=== PATIENT | female | born 1940 | race Caucasian/White ===

== ENCOUNTER 2017-06-19 13:52 | Inpatient (IN) | payer OTHER ==
[~2017-06-19] VITALS: Ht 157.5 cm; Wt 59.0 kg
--- NOTE | ~2017-06-19 | EKG ---
[place] [address] [facility] [place] [address] ELECTROCARDIOGRAM REPORT Name: SINTIA BESSET Efrain Room #: 448-P ADM IN M.R.#: [id number] Admission: 06/19/17 Attend Phys: Kylah Adames Discharge: Date of : 44 Report #: [id number] THIS REPORT FOR: //name// [facility] ED Test Date: 2017-06-19 Test Time: 14:29:21 Pat Name: JESSE BESS Department: Room: 448 Gender: F Booster Operator: [id number] : 1940 Requested By: Kylie Davis Order Number: [id number] MD: Fortunato Arguello Measurements Intervals [place]ill Rate: 84 P: 4 WY: 183 QRS: -37 QRSD: 88 T: 59 QT: 372 QTc: 440 Interpretive Statements Sinus rhythm LAD, consider LAFB or inferior infarct Left ventricular hypertrophy Anterior infarct, old No previous ECG available for comparison Electronically Signed On 06-19-2017 22:39:13 CREATIVE ART THERAPIST by Fortunato Arguello [email or web address] <ELECTRONICALLY SIGNED> By: Fortunato Arguello MD 06/19/17 2239 28 1429 Fortunato Arguello MD /EVARISTO
[~2017-06-19 13:52] MED LIST: CIPROFLOXACIN500 M1 PO; LEVOTHYROXIN0.088 MG; ZOCOR20 MG PO
[2017-06-19 13:54] VITALS: BP 133/73
[2017-06-19] MEDS ORDERED: VITAMIN B-12500 MCG PO (14:14)
[2017-06-19] MEDS ORDERED: SYNTHROID100 MCG PO (14:15)
[2017-06-19] MEDS ORDERED: IRON325 PO (14:15)
[2017-06-19] MEDS ORDERED: FOLIC ACID1 MG PO (14:15)
[2017-06-19] MEDS ORDERED: SIMVASTATIN40 MG PO (14:16)
[2017-06-19] MEDS ORDERED: CARAFATE 1 GM TA1 G1 PO (14:16)
[2017-06-19] MEDS ORDERED: PROTONIX40 M2 PO (14:16)
[2017-06-19 14:40] LABS: HEMATOCRIT 24.8 % (37.0-47.0); HEMOGLOBIN 8.2 gm/dL (12.0-15.0); MCH 30.2 pg (26.0-34.0); MCV 91.5 fL (80.0-100.0); PLATELET COUNT 372 thou/uL (150-400); RBC 2.71 mil/uL (4.20-5.00); RDW 19.6 % (10.5-14.5); WBC 5.7 thou/uL (4.0-11.0)
[2017-06-19 14:44] VITALS: BP 133/73
[2017-06-19 14:46] LABS: MANUAL DIFF YES
[2017-06-19 14:48] LABS: CALCIUM 8.5 mg/dL (8.5-10.1); CREATININE 0.8 mg/dL (0.6-1.0); POTASSIUM 3.9 mmol/L (3.5-5.1)
[2017-06-19 14:53] LABS: APTT 27.2 Seconds (24.5-32.8)
[2017-06-19 15:16] LABS: METAMYELOCYTES 1 %; TOTAL CELL COUNT 100
[2017-06-19 15:17] LABS: ANISOCYTOSIS 2+; BURR CELLS FEW; POIKILOCYTOSIS SLIGHT; POLYCHROMASIA SLIGHT
[2017-06-19 15:18] LABS: OVALOCYTES OCCASIONAL
[2017-06-19 16:46] VITALS: BP 135/72
[2017-06-19 17:24] VITALS: BP 128/81
[2017-06-20 01:46] VITALS: BP 123/63
[2017-06-20 04:03] LABS: HEMATOCRIT 22.2 % (37.0-47.0); HEMOGLOBIN 7.2 gm/dL (12.0-15.0); MCHC 32.4 g/dL (28.0-37.0); MCV 92.6 fL (80.0-100.0); RBC 2.39 mil/uL (4.20-5.00); RDW 19.5 % (10.5-14.5); WBC 4.2 thou/uL (4.0-11.0)
[2017-06-20 04:49] VITALS: BP 154/91
[2017-06-20 08:40] VITALS: BP 156/94
[2017-06-20 11:33] VITALS: BP 130/73; BP 138/78
[2017-06-20 19:42] VITALS: BP 138/85
[2017-06-21 03:55] VITALS: BP 128/84
[2017-06-21 06:21] LABS: HEMATOCRIT 26.5 % (37.0-47.0); HEMOGLOBIN 8.8 gm/dL (12.0-15.0); MCH 29.9 pg (26.0-34.0); MCHC 33.1 g/dL (28.0-37.0); MCV 90.3 fL (80.0-100.0); RBC 2.94 mil/uL (4.20-5.00); RDW 19.7 % (10.5-14.5); WBC 3.8 thou/uL (4.0-11.0)
[2017-06-21 07:40] VITALS: BP 156/90
[2017-06-21 09:13] LABS: % SATURATION 36 % (20-39); IRON 62 ug/dL (50-170); TIBC 172 ug/dL (250-450); UIBC 110 ug/dL
[2017-06-21 17:16] VITALS: BP 137/73
[2017-06-21 19:23] VITALS: BP 127/66
[2017-06-22 04:54] VITALS: BP 121/68
[2017-06-22 05:28] LABS: HEMATOCRIT 25.1 % (37.0-47.0); HEMOGLOBIN 8.2 gm/dL (12.0-15.0); MCHC 32.8 g/dL (28.0-37.0); MCV 91.5 fL (80.0-100.0); RBC 2.74 mil/uL (4.20-5.00); RDW 19.7 % (10.5-14.5); WBC 4.2 thou/uL (4.0-11.0)
[2017-06-22 08:00] VITALS: BP 144/95
== END 2017-06-22 15:11 | DRG 393 ==
LOC: ER 13:52 → EROBS 16:14 → 4S 16:14
PROVIDERS: Emergency Medicine; Hospitalist; Internal Medicine Gastroenterology
PROC: 30233N1 Transfusion of Nonautologous Red Blood Cells into Peripheral Vein, Percutaneous Approach (ICD-10-PCS; principal; 2017-06-20)
DX: K62.7 Radiation proctitis (principal); E43 Unspecified severe protein-calorie malnutrition; D62 Acute posthemorrhagic anemia; I12.9 Hypertensive chronic kidney disease with stage 1 through stage 4 chronic kidney disease, or unspecified chronic kidney disease; N18.9 Chronic kidney disease, unspecified; E78.5 Hyperlipidemia, unspecified; Z96.649 Presence of unspecified artificial hip joint; E03.9 Hypothyroidism, unspecified; F03.90 Unspecified dementia, unspecified severity, without behavioral disturbance, psychotic disturbance, mood disturbance, and anxiety; D50.9 Iron deficiency anemia, unspecified; I71.4 Abdominal aortic aneurysm, without rupture; Z68.23 Body mass index [BMI] 23.0-23.9, adult; Z86.73 Personal history of transient ischemic attack (TIA), and cerebral infarction without residual deficits; Z88.1 Allergy status to other antibiotic agents; Z88.8 Allergy status to other drugs, medicaments and biological substances; Z93.3 Colostomy status; Z88.2 Allergy status to sulfonamides; Z85.89 Personal history of malignant neoplasm of other organs and systems; Z90.710 Acquired absence of both cervix and uterus; Z28.21 Immunization not carried out because of patient refusal
CPT/HCPCS: 10102

== ENCOUNTER → 2017-07-05 | Outpatient (CLI) | payer OTHER ==
[~2017-07-05] MED LIST changes: +ANALPRAM HC 2.530 GM RECTAL; +CARAFATE 1 GM TA1 G1 PO; +COLACE100 MG PO; +FOLIC ACID1 MG PO; +IRON325 PO; +MESALAMINE4 GM/60 M2 RECTAL; +MIRALAX17 GM PO; +PROTONIX40 M2 PO; +SIMVASTATIN40 MG PO; +SYNTHROID100 MCG PO; +TYLENOL325 MG PO; +VITAMIN B-12500 MCG PO
[2017-07-05 11:18] VITALS: BP 107/54; BP 97/63
== END ==
LOC: OPONC 01:11
DX: D62 Acute posthemorrhagic anemia (principal); C54.1 Malignant neoplasm of endometrium; I12.9 Hypertensive chronic kidney disease with stage 1 through stage 4 chronic kidney disease, or unspecified chronic kidney disease; I77.4 Celiac artery compression syndrome; K62.89 Other specified diseases of anus and rectum; R41.0 Disorientation, unspecified; Z93.3 Colostomy status
CPT/HCPCS: 91030

== ENCOUNTER 2017-08-07 12:28 | Inpatient (IN) | payer OTHER ==
[~2017-08-07] VITALS: Ht 157.5 cm; Wt 74.0 kg
[~2017-08-07 12:28] MED LIST changes: +COLOCORT100 MG/60 RECTAL
[2017-08-07 12:29] VITALS: BP 144/81
[2017-08-07 13:19] LABS: ABSOLUTE NEUTROPHILS 2.8 thou/uL (1.4-8.2); BASOPHILS 0.8 % (0.0-2.0); EOSINOPHILS 14.1 % (0.0-3.0); HEMATOCRIT 28.4 % (37.0-47.0); HEMOGLOBIN 9.4 gm/dL (12.0-15.0); LYMPHOCYTES 12.1 % (24.0-44.0); MCH 31.1 pg (26.0-34.0); MCHC 33.1 g/dL (28.0-37.0); MCV 93.8 fL (80.0-100.0); MONOCYTES 11.2 % (1.0-8.0); PLATELET COUNT 260 thou/uL (150-400); POLYS 61.8 % (36.0-66.0); RBC 3.03 mil/uL (4.20-5.00); RDW 16.7 % (10.5-14.5); WBC 4.5 thou/uL (4.0-11.0)
[2017-08-07 13:28] LABS: ANION GAP 6 mmol/L (7-16); BUN 14 mg/dL (7-18); CALCIUM 8.8 mg/dL (8.5-10.1); CHLORIDE 99 mmol/L (98-107); CO2 28 mmol/L (21-32); GLUCOSE 102 mg/dL (74-106); SODIUM 133 mmol/L (136-145)
[2017-08-07 13:34] LABS: ALBUMIN 2.8 g/dL (3.4-5.0); SGOT 40 U/L (15-37); SGPT 66 U/L (30-65); TOTAL BILIRUBIN < 0.1 mg/dL (<0.1-1.0); TOTAL PROTEIN 6.2 g/dL (6.4-8.2)
[2017-08-07 13:46] LABS: PROTIME 9.4 Seconds (9.3-11.4)
[2017-08-07 18:19] LABS: HEMATOCRIT 27.8 % (37.0-47.0); HEMOGLOBIN 9.3 gm/dL (12.0-15.0)
[2017-08-07 19:25] VITALS: BP 114/73
[2017-08-07 19:40] VITALS: BP 125/66
[2017-08-08 01:44] LABS: HEMOGLOBIN 7.8 gm/dL (12.0-15.0); MCH 31.3 pg (26.0-34.0); MCHC 33.7 g/dL (28.0-37.0); MCV 92.8 fL (80.0-100.0); RBC 2.48 mil/uL (4.20-5.00); RDW 16.5 % (10.5-14.5); WBC 3.8 thou/uL (4.0-11.0)
[2017-08-08 01:48] LABS: CALCIUM 8.2 mg/dL (8.5-10.1); CREATININE 0.9 mg/dL (0.6-1.0); MAGNESIUM 1.7 mg/dL (1.8-2.4); POTASSIUM 3.9 mmol/L (3.5-5.1)
[2017-08-08 04:30] VITALS: BP 105/61
[2017-08-08 07:18] VITALS: BP 128/58
[2017-08-08 09:45] LABS: HEMATOCRIT 26.7 % (37.0-47.0); HEMOGLOBIN 8.7 gm/dL (12.0-15.0)
[2017-08-08 12:55] VITALS: BP 98/46
[2017-08-08 17:00] VITALS: BP 93/41
[2017-08-08 19:33] VITALS: BP 80/51
[2017-08-09] VITALS: BP 98/52
[2017-08-09 02:09] LABS: HAV IgM AB (ANTI-HAV IgM) Negative (Negative); HEPATITIS B SURFACE AG Negative (Negative); HEPATITIS C VIRUS AB <0.1 (0.0-0.9)
[2017-08-09 04:15] VITALS: BP 125/61
[2017-08-09 06:57] LABS: HEMATOCRIT 21.8 % (37.0-47.0); HEMOGLOBIN 7.5 gm/dL (12.0-15.0); MCH 31.3 pg (26.0-34.0); MCHC 34.1 g/dL (28.0-37.0); MCV 91.7 fL (80.0-100.0); PLATELET COUNT 254 thou/uL (150-400); RBC 2.38 mil/uL (4.20-5.00); RDW 16.7 % (10.5-14.5); WBC 3.5 thou/uL (4.0-11.0)
[2017-08-09 07:07] LABS: CALCIUM 8.2 mg/dL (8.5-10.1); CREATININE 1.1 mg/dL (0.6-1.0); MAGNESIUM 1.7 mg/dL (1.8-2.4); POTASSIUM 4.1 mmol/L (3.5-5.1)
[2017-08-09 07:21] VITALS: BP 109/66
[2017-08-09 09:52] LABS: ANISOCYTOSIS 1+; METAMYELOCYTES 4 %; POLYCHROMASIA OCCASIONAL
[2017-08-09 11:13] VITALS: BP 110/61
[2017-08-09 11:32] LABS: HEMATOCRIT 23.7 % (37.0-47.0); HEMOGLOBIN 7.9 gm/dL (12.0-15.0)
[2017-08-09 15:17] VITALS: BP 101/55
[2017-08-09 19:15] VITALS: BP 106/51
[2017-08-10 04:20] VITALS: BP 97/55
[2017-08-10 07:28] VITALS: BP 99/49
[2017-08-10 10:26] VITALS: BP 99/49
[2017-08-10 11:38] LABS: HEMOGLOBIN 7.5 gm/dL (12.0-15.0); MCH 31.7 pg (26.0-34.0); MCV 93.4 fL (80.0-100.0); RBC 2.35 mil/uL (4.20-5.00); RDW 17.4 % (10.5-14.5); WBC 4.2 thou/uL (4.0-11.0)
[2017-08-10] MEDS ORDERED: FLAGYL500 MG PO ×2 (11:38)
[2017-08-10 11:47] LABS: CALCIUM 8.2 mg/dL (8.5-10.1); CREATININE 1.1 mg/dL (0.6-1.0); MAGNESIUM 1.8 mg/dL (1.8-2.4)
[2017-08-10] MEDS ORDERED: CIPRO500 MG PO ×2 (11:49)
== END 2017-08-10 13:13 | disposition home health service (06) | DRG 377 ==
LOC: ER 12:28 → 3W 16:43 → EROBS 16:43 → 3W 19:27 → ENTRNSPT 08-10 13:07 → EDTRNSPTSTS 08-10 13:10 → 3W 08-10 13:13
PROVIDERS: Internal Medicine; Nurse Practitioner; Nurse Practitioner Family; Physician Assistant
DX: K92.2 Gastrointestinal hemorrhage, unspecified (principal); E43 Unspecified severe protein-calorie malnutrition; I12.0 Hypertensive chronic kidney disease with stage 5 chronic kidney disease or end stage renal disease; D62 Acute posthemorrhagic anemia; R41.3 Other amnesia; N18.9 Chronic kidney disease, unspecified; E78.5 Hyperlipidemia, unspecified; K52.9 Noninfective gastroenteritis and colitis, unspecified; K62.7 Radiation proctitis; E03.9 Hypothyroidism, unspecified; F03.90 Unspecified dementia, unspecified severity, without behavioral disturbance, psychotic disturbance, mood disturbance, and anxiety; Z96.649 Presence of unspecified artificial hip joint; R74.0 Nonspecific elevation of levels of transaminase and lactic acid dehydrogenase [LDH]; Z86.73 Personal history of transient ischemic attack (TIA), and cerebral infarction without residual deficits; Z93.3 Colostomy status; Z85.42 Personal history of malignant neoplasm of other parts of uterus; Z88.2 Allergy status to sulfonamides; Z88.8 Allergy status to other drugs, medicaments and biological substances; Z79.899 Other long term (current) drug therapy; Z90.710 Acquired absence of both cervix and uterus; Z68.29 Body mass index [BMI] 29.0-29.9, adult
CPT/HCPCS: 10879

== ENCOUNTER 2017-08-11 12:22 | Inpatient (IN) | payer OTHER ==
[~2017-08-11] VITALS: Ht 157.5 cm; Wt 73.5 kg
--- NOTE | ~2017-08-11 | HC ---
[facility] [place] [address] CONSULTATION Name: JESSE BESS Room #: 404-P [facility] IN M.R.#: [id number] Admission: 08/11/17 Attend Phys: Franklyn Fuentes MD Discharge: Date of : 42 Report #: [id number] THIS REPORT FOR: //name// CC: Dandy Fuentes REASON FOR CONSULTATION: The patient is a 77-year-old woman with recurrent rectal bleeding. HISTORY OF PRESENT ILLNESS: This 77-year-old woman has a history of rectal bleeding. She has a history of endometrial cancer with previous hysterectomy and radiation therapy. The patient has a component of dementia and knows some details, but does not have many specifics. 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 She had a colostomy done in 05/2017. On 05/15/2017, she had cauterization of multiple telangiectasias in the rectum. She has had problems with rectal bleeding since her radiation therapy. She had seen by my associates in the past and she had a flexible sigmoidoscopy through her anus on 06/27/2017. Dr. Kelley reported multiple small nonbleeding diverticula at the upper end of her rectal stump. 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 She is treated symptomatically and it is noted she has been treated with both hydrocortisone enemas as well as Carafate enemas. The patient was recently admitted on 08/08/2017 with similar problems. She reported bright red rectal bleeding. She had a CT of the abdomen and pelvis done on 08/07/2017 which reveals her colostomy apparently at the level of distal transverse colon. The sigmoid and rectal vault remain in place. There was mild diffuse thickening of the distal colon thought to represent a colitis. The patient had no further bleeding, was discharged on 08/10/2017. The patient presented yesterday 1 day after discharge with further rectal bleeding. Prior to discharge, her hemoglobin was 7.5. Upon presentation yesterday was 8.6, it was 9 last evening and 7.8 this morning. I have spoken with the patient as well as the patient's nurse. There has been no rectal bleeding since last night. The patient reports there had been no further rectal bleeding. The patient clearly states that there has not been blood in her colostomy bag. She does not have any abdominal pain at this point in time. PAST MEDICAL HISTORY: The patient reports that she had a previous CVA, which resulted in memory problems. She has a history of chronic kidney disease, elevated lipids. She has abdominal aortic aneurysm. 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 She has had rectal bleeding as well as endometrial cancer. PAST SURGICAL HISTORY: Previous hysterectomy. She has had a hernia repair, [address] [place] [address] CONSULTATION Name: JESSE BESS Room #: 404-P [facility] IN ..#: [id number] Admission: 08/11/17 Attend Phys: Franklyn Fuentes MD Discharge: Date of : 42 Report #: [id number] total hip replacement and diverting colostomy. FAMILY HISTORY: No family history of colon cancer per the patient, however, reliability of her history is uncertain. SOCIAL HISTORY: Lives with her son, who manages her care including emptying her colostomy bag. She denies alcohol consumption or smoking. REVIEW OF SYSTEMS: Twelve-point review was completed with the patient. Positives include a previous CVA and memory issues. She reports rectal bleeding as well. She denies all other problems. Again, reliability of her history is uncertain. PHYSICAL EXAMINATION: GENERAL: The patient is a well-developed, well-nourished woman who is awake and alert, pleasant, in no acute distress. She probably answers questions; however, many times, she does not have the answer. She is not fully oriented to time. VITAL SIGNS: Blood pressure 130/70, pulse rate is 75. HEENT: Anicteric. Pupils equal and round. Oropharynx clear. NECK: Supple. CHEST: Clear. HEART: Regular rate and rhythm, normal S1 and S2. Soft murmur. ABDOMEN: Somewhat overweight. Normal bowel sounds, soft, nontender, without hepatosplenomegaly or masses, no bruits are heard. Colostomy bag is noted, not removed or taken down. RECTAL: Not done at this time. EXTREMITIES: Without cyanosis, clubbing, edema. NEUROLOGIC: She is not fully oriented. She has fluent speech. She moves all 4 extremities well. LABORATORY DATA: Reveal a white count of 3.9, hemoglobin 7.8, it was 8.6 last evening, platelet count of 310,000. Sodium 132, potassium 3.7, chloride 98, CO2 29, BUN 12, creatinine 1.0. Bilirubin, AST and ALT are all unremarkable. Albumin 2.7, lipase of 355. Urinalysis unremarkable. ASSESSMENT: 1. Radiation proctitis with recurrent rectal bleeding. 2. History of uterine cancer status post hysterectomy and radiation therapy. 3. Diverting colostomy, presumably for radiation proctitis. 4. Abnormal liver function tests on previous admission, normal at this time. 5. Fatty liver disease noted on previous ultrasound. 6. Memory loss. 7. Dementia. 8. History of chronic kidney disease with normal creatinine at this time. RECOMMENDATIONS: [facility] [address] [place] [address] CONSULTATION Name: JESSE BESS Room #: 404-P ADM IN .R.#: [id number] Admission: 08/11/17 Attend Phys: Franklyn Fuentes MD Discharge: Date of : 44 Report #: [id number] 1. Continue hydrocortisone enemas, which were started last evening. 2. Flexible sigmoidoscopy. Plan to do tomorrow. We will undertake intervention if needed. 3. We will resume diet. <ELECTRONICALLY SIGNED> By: Cliff Glover MD 08/12/17 1523 0928 1430 Cliff Glover MD /nt
--- NOTE | ~2017-08-11 | P ---
[facility] [place] [address] PROCEDURE REPORT Name: JESSE BESS Room #: 404-P [facility] IN M.R.#: [id number] Admission: 08/11/17 Attend Phys: Franklyn Fuentes MD Discharge: Date of : 42 Report #: [id number] THIS REPORT FOR: //name// CC: Dandy Fuentes BRIEF HISTORY: The patient is a 77-year-old woman with a history of previous surgery for, I believe, endometrial cancer with previous radiation therapy and subsequent diversion colostomy with distal sigmoid and rectum remaining in place. PREOPERATIVE DIAGNOSIS: Rectal bleeding with history of radiation proctitis. POSTOPERATIVE DIAGNOSES: 1. Extensive arteriovascular malformations, distal rectum. 2. 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 3. Sigmoid diverticulosis coli. MEDICATIONS: Deep sedation with propofol per anesthesia. SPECIMEN: Biopsies of rectum, rule out diversion colitis. ESTIMATED BLOOD LOSS: 5 mL. PROCEDURE: Flexible sigmoidoscopy with argon plasma coagulation of AVMs and biopsy. FINDINGS: Prior propofol sedation, procedure of flexible sigmoidoscopy discussed with the patient. She indicates she understands and desires to proceed. With the patient in left lateral decubitus position, digital examination was completed, which revealed no abnormalities. Subsequently, the LeanWagon video colonoscope was introduced in the rectum, advanced under direct vision. The scope was very carefully advanced into distal sigmoid colon to what appeared to be the blind end. Diverticula were seen in the distal segment of the sigmoid. The mucosa was intact. As the scope was withdrawn, the mucosa was inspected. The mucosa was normal appearing in the sigmoid and mid and upper rectum. However, it was quite friable and just touching with the scope caused some oozing of blood. Findings are thought to be consistent with diversion colitis and biopsies were obtained. Most notably in the distal rectum, there were extensive AVMs involving the entire 360 degree circumference of the distal rectum. Also, the mucosa was quite friable, which hampered our efforts to treat these areas. We irrigated, suctioned to remove as much blood as possible. However, some areas, there was persistent blood, which made visualization difficult. In spite of that, multiple areas of extensive AVMs were identified [address] [address] PROCEDURE REPORT Name: JESSE BESS Room #: 404-P [facility] IN [facility].#: [id number] Admission: 08/11/17 Attend Phys: Franklyn Fuentes MD Discharge: Date of : 42 Report #: [id number] and treated with a 10-Welsh argon plasma coagulation catheter. After all visible areas were treated, the scope was withdrawn. The patient tolerated the procedure well. DISPOSITION: The patient with the treatment as noted above. Due to her colitis, we will continue hydrocortisone enemas at this time. Continue to monitor hemoglobin. Unfortunately, bleeding will likely continue to be problem at least on a short term. Hopefully, treatment today will make some overall impact on reducing her rectal bleeding. She will likely need another treatment session and probably wait at least 4 weeks or more to allow the ulceration for today's treatment to heal and resolve. Ultimately, if it cannot be controlled, proctectomy may be an option if bleeding becomes a significant issue and does not resolve. <ELECTRONICALLY SIGNED> By: Cliff Glover MD 08/13/17 1631 1054 1214 Cliff Glover MD /nt
--- NOTE | ~2017-08-11 | S ---
[facility] [place] [address] SURGICAL PATH RPT PROCEDURE Name: MALINDA RIVERA Room #: 404-P DIS IN M.R.#: [id number] Admission: 08/11/17 Date of : 44 Discharge: 08/14/17 Report #: [id number] Path Case #: [id number] PATHOLOGY REPORT COLLECTION DATE: 08/13/2017 RECEIVED DATE: 08/13/2017 SUBMITTING PHYS: Dr. Franklyn Fuentes OTHER PHYS: Dr. Dandy Nazario SPECIMEN(S) RECEIVED: A.Bx of rectum * * * * * * * * * * * * FINAL DIAGNOSIS: Large intestine, rectum, endoscopic biopsy: - Nonspecific changes (please see comment). COMMENT: Examination shows subtle fibrosis within lamina propria along with edema as well as lymphocytes, plasma cells and rare eosinophils. The crypts show rare architectural distortion; however, show no evidence of active cryptitis, crypt abscess formation or atypia. Rare apoptotic bodies are identified within the crypts. History of radiation therapy is noted. The changes may represent reactive changes due to the same or a prior episode of active colitis which may be resolving. There is no dysplasia or malignancy present. Please correlate clinically. (IUV:pit; 08/14/2017) PATHOLOGIST: Sandra Blackburn M.D. REPORT ELECTRONICALLY SIGNED BY: Sandra Blackburn M.D. DATE/TIME: 08/14/2017 17:22 * * * * * * * * * * * * GROSS PATHOLOGY: Received in formalin labeled "Malinda Rivera, BX of rectum," are 4 segments of herrera soft tissue measuring 1.2 x 0.8 x 0.2 cm in aggregate dimensions and ranging from 0.2 to 0.3 cm in maximum dimension. The specimen is submitted entirely in cassette A1. (TSD; 08/13/2017) CLINICAL HISTORY: Pre-OP DX: Rectal bleeding, GI bleed, history of radiation therapy, history of colon diversion, Rule out diversion colitis [address] [address] SURGICAL PATH RPT PROCEDURE Name: MALINDA RIVERA Room #: 404-P [facility] IN M.R.#: [id number] Admission: 08/11/17 Date of : 44 Discharge: 08/14/17 Report #: [id number] Path Case #: [id number] INITIAL CPT CODE(S): A; 83113 Professional services performed by [facility] at [address], [place] [address] Technical services performed by [facility] at [address] [place] [address], [facility] [address] [address]. [facility] [address] [place] [address] PHONE: [phone] DIRECTOR: Rigoberto Watkins M.D. * * * END OF REPORT * * *
[~2017-08-11 12:22] MED LIST changes: +CIPRO500 MG PO; +FLAGYL500 MG PO
[2017-08-11 12:25] VITALS: BP 119/56
[2017-08-11 13:17] LABS: ABSOLUTE NEUTROPHILS 3.6 thou/uL (1.4-8.2); BASOPHILS 1.5 % (0.0-2.0); EOSINOPHILS 3.9 % (0.0-3.0); HEMATOCRIT 25.6 % (37.0-47.0); HEMOGLOBIN 8.6 gm/dL (12.0-15.0); LYMPHOCYTES 9.1 % (24.0-44.0); MCH 31.4 pg (26.0-34.0); MCHC 33.5 g/dL (28.0-37.0); MCV 93.6 fL (80.0-100.0); MONOCYTES 11.4 % (1.0-8.0); PLATELET COUNT 319 thou/uL (150-400); POLYS 74.1 % (36.0-66.0); RBC 2.73 mil/uL (4.20-5.00); RDW 17.5 % (10.5-14.5); WBC 4.9 thou/uL (4.0-11.0)
[2017-08-11 13:25] LABS: ANION GAP 5 mmol/L (7-16); BUN 12 mg/dL (7-18); CALCIUM 8.4 mg/dL (8.5-10.1); CHLORIDE 98 mmol/L (98-107); CO2 29 mmol/L (21-32); GLUCOSE 96 mg/dL (74-106); POTASSIUM 3.7 mmol/L (3.5-5.1); SODIUM 132 mmol/L (136-145)
[2017-08-11 13:31] LABS: URINE BILIRUBIN NEGATIVE (Negative); URINE BLOOD NEGATIVE (Negative); URINE CLARITY CLEAR; URINE COLOR YELLOW; URINE GLUCOSE-RANDOM* NEGATIVE (Negative); URINE KETONES NEGATIVE (Negative); URINE LEUKOCYTES NEGATIVE (Negative); URINE NITRITE NEGATIVE (Negative); URINE PROTEIN (DIPSTICK) NEGATIVE (Negative); URINE UROBILINOGEN 0.2 E.U./dl (0.2-1.0)
[2017-08-11 13:31] LABS: ALBUMIN 2.7 g/dL (3.4-5.0); DIRECT BILIRUBIN < 0.1 mg/dL (<0.1-0.3); LIPASE 335 U/L (73-393); SGOT 17 U/L (15-37); SGPT 29 U/L (30-65); TOTAL BILIRUBIN 0.1 mg/dL (<0.1-1.0); TOTAL PROTEIN 5.9 g/dL (6.4-8.2)
[2017-08-11 14:30] VITALS: BP 140/72
[2017-08-11 14:54] VITALS: BP 161/74
[2017-08-11 15:00] VITALS: BP 128/78
[2017-08-11 15:37] LABS: HEMATOCRIT 26.9 % (37.0-47.0); MCH 31.3 pg (26.0-34.0); MCHC 33.5 g/dL (28.0-37.0); MCV 93.6 fL (80.0-100.0); RBC 2.87 mil/uL (4.20-5.00); RDW 17.5 % (10.5-14.5); WBC 5.8 thou/uL (4.0-11.0)
[2017-08-11 20:25] VITALS: BP 129/68
[2017-08-12 00:46] VITALS: BP 110/68
[2017-08-12 03:45] VITALS: BP 130/70
[2017-08-12 05:47] LABS: HEMATOCRIT 23.4 % (37.0-47.0); HEMOGLOBIN 7.8 gm/dL (12.0-15.0); MCH 31.2 pg (26.0-34.0); MCHC 33.3 g/dL (28.0-37.0); MCV 93.9 fL (80.0-100.0); RBC 2.49 mil/uL (4.20-5.00); RDW 17.4 % (10.5-14.5); WBC 3.9 thou/uL (4.0-11.0)
[2017-08-12 08:00] VITALS: BP 125/73
[2017-08-12 16:00] VITALS: BP 119/70
[2017-08-12 20:00] VITALS: BP 138/72
[2017-08-13 04:00] VITALS: BP 125/65
[2017-08-13 06:24] LABS: HEMATOCRIT 21.8 % (37.0-47.0); HEMOGLOBIN 7.3 gm/dL (12.0-15.0); MCH 31.8 pg (26.0-34.0); MCHC 33.7 g/dL (28.0-37.0); MCV 94.3 fL (80.0-100.0); PLATELET COUNT 312 thou/uL (150-400); RBC 2.31 mil/uL (4.20-5.00); RDW 17.2 % (10.5-14.5)
[2017-08-13 06:41] LABS: CALCIUM 8.6 mg/dL (8.5-10.1); CREATININE 1.1 mg/dL (0.6-1.0); POTASSIUM 3.9 mmol/L (3.5-5.1)
[2017-08-13 08:07] LABS: ABSOLUTE NEUTROPHILS 2.4 thou/uL (1.4-8.2); ANISOCYTOSIS 1+; POLYCHROMASIA OCCASIONAL
[2017-08-13 12:00] VITALS: BP 142/74
[2017-08-13 16:00] VITALS: BP 136/82
[2017-08-13 19:50] VITALS: BP 96/54
[2017-08-14 04:50] VITALS: BP 103/64
[2017-08-14 06:43] LABS: HEMATOCRIT 21.8 % (37.0-47.0); HEMOGLOBIN 7.2 gm/dL (12.0-15.0); MCH 31.4 pg (26.0-34.0); MCHC 32.9 g/dL (28.0-37.0); MCV 95.7 fL (80.0-100.0); RBC 2.28 mil/uL (4.20-5.00); RDW 17.5 % (10.5-14.5); WBC 7.2 thou/uL (4.0-11.0)
[2017-08-14 09:44] VITALS: BP 108/61
[2017-08-14 12:29] VITALS: BP 108/61
== END 2017-08-14 14:45 | disposition home health service (06) | DRG 377 ==
LOC: ER 12:22 → 4N 13:38 → EROBS 13:38 → 4N 14:53
PROVIDERS: Emergency Medicine; Family Medicine; Internal Medicine; Specialist
PROC: 0DBP8ZX Excision of Rectum, Via Natural or Artificial Opening Endoscopic, Diagnostic (ICD-10-PCS; principal; 2017-08-11)
DX: K55.21 Angiodysplasia of colon with hemorrhage (principal); E43 Unspecified severe protein-calorie malnutrition; D62 Acute posthemorrhagic anemia; K62.7 Radiation proctitis; K57.31 Diverticulosis of large intestine without perforation or abscess with bleeding; K52.9 Noninfective gastroenteritis and colitis, unspecified; E78.5 Hyperlipidemia, unspecified; R41.3 Other amnesia; F03.90 Unspecified dementia, unspecified severity, without behavioral disturbance, psychotic disturbance, mood disturbance, and anxiety; N18.9 Chronic kidney disease, unspecified; I12.9 Hypertensive chronic kidney disease with stage 1 through stage 4 chronic kidney disease, or unspecified chronic kidney disease; K76.0 Fatty (change of) liver, not elsewhere classified; E03.9 Hypothyroidism, unspecified; Z96.649 Presence of unspecified artificial hip joint; Z79.899 Other long term (current) drug therapy; Z86.73 Personal history of transient ischemic attack (TIA), and cerebral infarction without residual deficits; Z88.2 Allergy status to sulfonamides; Z79.2 Long term (current) use of antibiotics; Z93.3 Colostomy status; Z88.8 Allergy status to other drugs, medicaments and biological substances; Z68.29 Body mass index [BMI] 29.0-29.9, adult; Z90.710 Acquired absence of both cervix and uterus
CPT/HCPCS: 10790; 50010; 62110; 62900

== ENCOUNTER 2017-08-17 14:04 | Inpatient (IN) | payer OTHER ==
[~2017-08-17] VITALS: Ht 157.5 cm; Wt 74.8 kg
--- NOTE | ~2017-08-17 | HC ---
[facility] [place] [address] CONSULTATION Name: JESSE BESS Room #: 431-P [facility] IN M.R.#: [id number] Admission: 08/17/17 Attend Phys: Carlton Hill MD Discharge: Date of : 42 Report #: [id number] THIS REPORT FOR: //name// CC: Carlton Adames MD DATE OF SERVICE: 08/18/2017 HISTORY OF PRESENT ILLNESS: The patient is a 77-year-old female who is a fair historian. She does have a history of dementia, who was admitted with not having a bowel movement for several days. She has a ostomy, colostomy and apparently was having increasing constipation. Her KUB showed multiple loops of small bowel that were dilated, could reflect an ileus or small-bowel obstruction. This was performed yesterday. A CT scan of the abdomen has been taken this morning, but has not been read as of yet. She denies any abdominal pain. There is a small amount of stool in her colostomy bag at this time. She denies any further bleeding from her rectum, which has been a problem recently. In fact, she has had several hospitalizations. Dr. Glover, my partner had done flexible sigmoidoscopy recently on her and the area was treated with APC cautery. She was noted to have a diversion colitis as well apparently. She has had a previous history of endometrial cancer with radiation therapy. The procedure was performed on 08/13/2017. The patient denies any nausea or vomiting currently. She is currently on clear liquids and would like to have something more substantial. No fevers or chills. PAST MEDICAL HISTORY: Colostomy, history of radiation and diversion colitis as per above, status post APC cautery recently, history of CVA, memory loss, anemia, previous history of endometrial cancer status post radiation, hypertension, hyperlipidemia, abdominal aortic aneurysm. MEDICATIONS ON ADMISSION: Flagyl, Cipro, hydrocortisone rectally, Synthroid, Carafate, Protonix. ALLERGIES: BACTRIM, SULFA, AND FENTANYL. REVIEW OF SYSTEMS: As per HPI. SOCIAL HISTORY: She denies any tobacco or alcohol use. FAMILY HISTORY: Negative for colon cancer. PHYSICAL EXAMINATION: VITAL SIGNS: Temperature is 97.9, pulse 94, blood pressure 113/66, respiratory rate is 18. [facility] [address] [place] [address] CONSULTATION Name: JESSE BESS Room #: 431-P [facility] IN M.R.#: [id number] Admission: 08/17/17 Attend Phys: Carlton Hill MD Discharge: Date of : 42 Report #: [id number] GENERAL: She is alert and oriented x 3 in no acute distress. HEENT: Sclerae nonicteric. Oropharynx clear. NECK: Supple. CARDIOVASCULAR: Regular rate and rhythm. CHEST: Clear to auscultation bilaterally. ABDOMEN: Soft. She is nontender, nondistended, normoactive bowel sounds. Colostomy is noted in place. There is a small amount of green to brown stool within the bag. No evidence of bleeding. EXTREMITIES: No cyanosis, clubbing or edema. LABORATORY DATA: Sodium 136, potassium 4.0, chloride 101, bicarbonate 28, BUN 14, creatinine 1.1. AST is 18, total bilirubin 0.1, alkaline phosphatase 79, total protein 6.3, albumin 2.7. WBC is 4.5, hemoglobin 7.6, was 8.4 yesterday. MCV 94.9, platelet count is 325. ASSESSMENT AND PLAN: 1. Recent constipation. KUB on admission showing dilated loops of small bowel suggesting a partial small-bowel obstruction. No history of nausea, vomiting. CT scan is pending at this time. If there is improvement on CT today, would likely recommend advancing diet. 2. History of rectal bleeding from radiation proctitis as well as diversion colitis. The patient had a recent flexible sigmoidoscopy with APC cautery. We will continue to monitor that closely. Continue cortisone suppository. Thank you for allowing me to participate in her care. <ELECTRONICALLY SIGNED> By: Magnus Newberry MD 08/20/17 0814 1307 1811 Magnus Newberry MD /nt
[2017-08-17 14:05] VITALS: BP 127/60
[2017-08-17 15:01] LABS: ABSOLUTE NEUTROPHILS 5.6 thou/uL (1.4-8.2); BASOPHILS 1.4 % (0.0-2.0); EOSINOPHILS 2.1 % (0.0-3.0); HEMATOCRIT 25.3 % (37.0-47.0); HEMOGLOBIN 8.4 gm/dL (12.0-15.0); LYMPHOCYTES 8.2 % (24.0-44.0); MCH 31.2 pg (26.0-34.0); MCHC 33.1 g/dL (28.0-37.0); MCV 94.4 fL (80.0-100.0); MONOCYTES 6.6 % (1.0-8.0); PLATELET COUNT 391 thou/uL (150-400); POLYS 81.7 % (36.0-66.0); RBC 2.68 mil/uL (4.20-5.00); RDW 16.8 % (10.5-14.5); WBC 6.9 thou/uL (4.0-11.0)
[2017-08-17 15:04] LABS: CALCIUM 8.6 mg/dL (8.5-10.1); CREATININE 1.1 mg/dL (0.6-1.0)
[2017-08-17 15:10] LABS: ALBUMIN 2.7 g/dL (3.4-5.0); TOTAL BILIRUBIN 0.1 mg/dL (<0.1-1.0); TOTAL PROTEIN 6.3 g/dL (6.4-8.2)
[2017-08-17 17:26] VITALS: BP 127/60
[2017-08-17 18:02] LABS: URINE BILIRUBIN NEGATIVE (Negative); URINE BLOOD 2+ (Negative); URINE CLARITY CLEAR; URINE COLOR YELLOW; URINE GLUCOSE-RANDOM* NEGATIVE (Negative); URINE KETONES NEGATIVE (Negative); URINE LEUKOCYTES-REFLEX NEGATIVE (Negative); URINE NITRITE-REFLEX NEGATIVE (Negative); URINE PROTEIN (DIPSTICK) TRACE (Negative); URINE SPECIFIC GRAVITY 1.015 (1.005-1.035); URINE UROBILINOGEN 0.2 E.U./dl (0.2-1.0)
[2017-08-17 18:10] LABS: BACTERIA-REFLEX 1-9 Few /HPF (None Seen); CASTS None Seen /LPF (None Seen); CRYSTALS None Seen /LPF (None Seen); MUCUS >6 Heavy strn/LPF (None Seen); SQUAMOUS 0-3 Few /LPF (0-3); URINE RBC 0-2 Rare /HPF (0-2); URINE WBC-REFLEX 0-5 Rare /HPF (0-5)
[2017-08-17 19:31] VITALS: BP 90/54
[2017-08-18 01:14] VITALS: BP 102/58
[2017-08-18 03:34] LABS: HEMATOCRIT 22.5 % (37.0-47.0); HEMOGLOBIN 7.6 gm/dL (12.0-15.0); MCH 31.9 pg (26.0-34.0); MCHC 33.7 g/dL (28.0-37.0); MCV 94.9 fL (80.0-100.0); RBC 2.38 mil/uL (4.20-5.00); WBC 4.5 thou/uL (4.0-11.0)
[2017-08-18 07:20] VITALS: BP 113/66
[2017-08-18 15:20] VITALS: BP 141/91
[2017-08-19 05:30] VITALS: BP 111/72
[2017-08-19 06:35] LABS: CALCIUM 8.6 mg/dL (8.5-10.1); POTASSIUM 4.5 mmol/L (3.5-5.1)
[2017-08-19 08:00] VITALS: BP 142/86
[2017-08-19 12:05] LABS: HEMATOCRIT 25.1 % (37.0-47.0); HEMOGLOBIN 8.3 gm/dL (12.0-15.0); MCH 31.4 pg (26.0-34.0); MCHC 33.1 g/dL (28.0-37.0); MCV 94.6 fL (80.0-100.0); RBC 2.65 mil/uL (4.20-5.00); RDW 17.1 % (10.5-14.5); WBC 3.9 thou/uL (4.0-11.0)
[2017-08-19 16:00] VITALS: BP 115/69
[2017-08-19 20:11] VITALS: BP 124/58
[2017-08-20 04:46] VITALS: BP 121/98
[2017-08-20 07:17] LABS: HEMATOCRIT 24.9 % (37.0-47.0); HEMOGLOBIN 8.1 gm/dL (12.0-15.0); MCH 31.1 pg (26.0-34.0); MCHC 32.5 g/dL (28.0-37.0); MCV 95.6 fL (80.0-100.0); RBC 2.6 mil/uL (4.20-5.00); WBC 3.2 thou/uL (4.0-11.0)
[2017-08-20 07:42] LABS: CALCIUM 8.8 mg/dL (8.5-10.1); CREATININE 1.1 mg/dL (0.6-1.0); POTASSIUM 3.9 mmol/L (3.5-5.1)
[2017-08-20 15:07] VITALS: BP 121/98
== END 2017-08-20 17:07 | disposition home health service (06) | DRG 388 ==
LOC: ER 14:04 → 4E 15:51 → EROBS 15:51 → 4E 18:13
PROVIDERS: Hospitalist; Nurse Practitioner Family
DX: K56.600 Partial intestinal obstruction, unspecified as to cause (principal); E43 Unspecified severe protein-calorie malnutrition; K62.5 Hemorrhage of anus and rectum; I12.0 Hypertensive chronic kidney disease with stage 5 chronic kidney disease or end stage renal disease; D62 Acute posthemorrhagic anemia; K62.7 Radiation proctitis; K80.20 Calculus of gallbladder without cholecystitis without obstruction; I71.4 Abdominal aortic aneurysm, without rupture; K21.9 Gastro-esophageal reflux disease without esophagitis; Z96.649 Presence of unspecified artificial hip joint; E03.9 Hypothyroidism, unspecified; K59.00 Constipation, unspecified; F03.90 Unspecified dementia, unspecified severity, without behavioral disturbance, psychotic disturbance, mood disturbance, and anxiety; E78.5 Hyperlipidemia, unspecified; Z86.73 Personal history of transient ischemic attack (TIA), and cerebral infarction without residual deficits; Z93.3 Colostomy status; Z85.42 Personal history of malignant neoplasm of other parts of uterus; Z88.2 Allergy status to sulfonamides; Z88.8 Allergy status to other drugs, medicaments and biological substances; Z79.899 Other long term (current) drug therapy; Z90.710 Acquired absence of both cervix and uterus
CPT/HCPCS: 10084

== ENCOUNTER 2017-08-28 11:24 | Emergency (ER) | payer OTHER ==
[~2017-08-28] VITALS: Ht 157.5 cm; Wt 56.7 kg
[2017-08-28 11:57] LABS: ABSOLUTE NEUTROPHILS 2.8 thou/uL (1.4-8.2); BASOPHILS 0.3 % (0.0-2.0); EOSINOPHILS 7.1 % (0.0-3.0); HEMATOCRIT 25.8 % (37.0-47.0); HEMOGLOBIN 8.6 gm/dL (12.0-15.0); LYMPHOCYTES 14.2 % (24.0-44.0); MCH 31.2 pg (26.0-34.0); MCHC 33.2 g/dL (28.0-37.0); MCV 94.2 fL (80.0-100.0); MONOCYTES 8.9 % (1.0-8.0); PLATELET COUNT 326 thou/uL (150-400); POLYS 69.5 % (36.0-66.0); RBC 2.74 mil/uL (4.20-5.00); RDW 16.8 % (10.5-14.5)
[2017-08-28 12:03] LABS: CALCIUM 9.1 mg/dL (8.5-10.1); POTASSIUM 4.2 mmol/L (3.5-5.1)
[2017-08-28 12:09] LABS: TOTAL BILIRUBIN 0.2 mg/dL (<0.1-1.0); TOTAL PROTEIN 6.3 g/dL (6.4-8.2)
[2017-08-28 12:56] VITALS: BP 115/71
== END 2017-08-28 13:12 | disposition home or self-care (01) ==
LOC: ER 11:24
PROVIDERS: Physician Assistant
DX: K62.5 Hemorrhage of anus and rectum (principal); D64.9 Anemia, unspecified; K62.7 Radiation proctitis; I12.9 Hypertensive chronic kidney disease with stage 1 through stage 4 chronic kidney disease, or unspecified chronic kidney disease; N18.9 Chronic kidney disease, unspecified; E78.5 Hyperlipidemia, unspecified; I71.4 Abdominal aortic aneurysm, without rupture; Z86.73 Personal history of transient ischemic attack (TIA), and cerebral infarction without residual deficits; Z88.2 Allergy status to sulfonamides; Z88.8 Allergy status to other drugs, medicaments and biological substances

== ENCOUNTER 2017-09-15 01:39 | Inpatient (IN) | payer OTHER ==
[~2017-09-15] VITALS: Ht 157.5 cm; Wt 71.5 kg
--- NOTE | ~2017-09-15 | P ---
[facility] [place] [place] [address] PROCEDURE REPORT Name: JESSE BESS Room #: 207-P [facility] IN .R.#: [id number] Admission: 09/15/17 Attend Phys: Franklyn Fuentes MD Discharge: 09/18/17 Date of : 42 Report #: [id number] THIS REPORT FOR: //name// CC: Carlton Fuentes DATE OF SERVICE: 09/15/2017 PROCEDURE PERFORMED: Flexible sigmoidoscopy. HISTORY OF PRESENT ILLNESS: The patient is a 77-year-old female with a history of colostomy. It is unclear if this was done for diverticular disease or history of colon cancer, however, she has had this for some time. She has a known history of recurrent lower GI bleed from her remaining sigmoid and rectum. She also has a known history of radiation proctitis. She had radiation therapy for endometrial cancer. She has a history of diversion colitis as well as diverticulosis within the remaining Annmarie pouch segment. This has been treated with suppositories and steroid enemas without much benefit. Dr. Glover performed APC cautery on radiation changes 1 month ago, which appeared to be helpful. The patient had recurrent bleeding at this time as well as drop in hemoglobin. She has now received 1 unit of packed cells. Plan is for repeat flexible sigmoidoscopy today. DESCRIPTION OF PROCEDURE: The risks and benefits of the procedure were explained to the patient, those risks including but not limited to bleeding, perforation, the risk of sedation. She understood these risks and gave informed consent. The procedure was performed with conscious sedation using Versed and morphine. Next, a digital rectal exam was initially performed, which showed some narrowing in the anal canal, but otherwise normal. Next, using a standard Fujinon colonoscope, the scope was placed in the patient's anus and advanced under direct vision into the rectosigmoid colon at which point, the patient was having some discomfort. There were multiple clots within this area. At this point, I removed the clots that were visualized and removed the scope and then replaced this with a Fujinon upper endoscope that was smaller and thinner in diameter. I was able to advance the scope into the area of the Annmarie's pouch closure. Multiple diverticula were noted in this area as well as some clots. Multiple washings and aspirations were performed. There was no evidence of bleeding from diverticula. The scope was then slowly withdrawn and there were significant changes of inflammation noted in the rectum as well as clots and bright red blood. There was a significant radiation proctitis changes with some ulcerations. This is likely source of recent bleed. At this point, we are attempting to start APC cautery; however, despite giving the patient Versed and morphine, she was having discomfort and wanted us to stop the procedure. There [address] [address] PROCEDURE REPORT Name: MARIA ALEJANDRAJESSE M Room #: 207-P [facility] IN M.R.#: [id number] Admission: 09/15/17 Attend Phys: Franklyn Fuentes MD Discharge: 09/18/17 Date of : 42 Report #: [id number] was no significant active bleeding at this time; therefore, it was determined to go ahead and terminate the procedure. The patient tolerated the procedure well other than some discomfort. IMPRESSION: 1. Significant radiation proctitis with clot, likely source of recent recurrent bleed. 2. Diverticulosis in the remaining Annmarie's pouch, no evidence of bleeding. RECOMMENDATIONS: Overall, very difficult case. I discussed the findings with the patient's son today. It appears that APC cautery has been helpful. She has only had this treated once in the past. I would recommend repeating treatment with anesthesia using propofol for deeper sedation, probably on Sunday morning. In the meantime, continue to monitor hemoglobin closely, may need to proceed sooner. I also explained to the patient and her son that we may need to consider surgical options removing her rectum and remaining Annmarie's pouch; however, this may be very difficult as she has a large amount of scarring in this area from previous radiation. This was noted on CT. Of note, there was no mass lesions noted in the rectum or within the anal canal. If the patient has continued recurrent episodes, surgery would be of benefit, but again this has an increased risk due to her previous radiation changes. Thank you for allowing me to participate in her care. <ELECTRONICALLY SIGNED> By: Magnus Newberry MD 09/19/17 0821 1403 2153 Magnus Newberry MD /nt
--- NOTE | ~2017-09-15 | HC ---
[facility] [place] [address] CONSULTATION Name: JESSE BESS Room #: 207-P [facility] IN .R.#: [id number] Admission: 09/15/17 Attend Phys: Franklyn Fuentes MD Discharge: 09/18/17 Date of : 42 Report #: [id number] THIS REPORT FOR: //name// CC: Carlton Fuentes DATE OF SERVICE: 09/15/2017 HISTORY OF PRESENT ILLNESS: The patient is a 77-year-old female with a history of recurrent hematochezia. She has a colostomy, but has had no bleeding on her ostomy, but recurrent GI bleeds from her Annmarie's pouch. She underwent a flexible sigmoidoscopy by my partner, Dr. 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 These areas were treated with APC cautery at that time. It appears this was helpful and she had no further bleeding until just recently. She has had a previous history of endometrial cancer with radiation therapy. She denies any significant abdominal pain. The patient is a fair historian. She does have a history of dementia. The patient apparently was passing bright red blood with clots and her hemoglobin was noted to be 6.8. She underwent a transfusion of 1 unit of packed cells and her repeat hemoglobin this morning at 09:50 was 8.3. No fevers or chills. The stool in the colostomy has been brown and no evidence of bleeding. She has also had a recent hospitalization for partial small bowel obstruction. 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 ALLERGIES: BACTRIM, FENTANYL AND SULFA. REVIEW OF SYSTEMS: As per HPI. SOCIAL HISTORY: She denies any tobacco or alcohol use. FAMILY HISTORY: Negative for colon cancer. MEDICATIONS: On admission, Synthroid, Carafate, Protonix. PHYSICAL EXAMINATION: VITAL SIGNS: Temperature is 98.1, pulse 70, blood pressure 136/77, respiratory rate is 18. GENERAL: She is oriented to place and person. She is somewhat forgetful. She [facility] [address] [place] [address] CONSULTATION Name: JESSE BESS Room #: 207-P [facility] IN [facility]#: [id number] Admission: 09/15/17 Attend Phys: Franklyn Fuentes MD Discharge: 09/18/17 Date of : 42 Report #: [id number] is in no acute distress. HEENT: Sclerae nonicteric. Oropharynx clear. NECK: Supple, without lymphadenopathy. CARDIOVASCULAR: Regular rate and rhythm. CHEST: Clear to auscultation bilaterally. ABDOMEN: Soft. She is nontender, nondistended, normoactive bowel sounds. EXTREMITIES: No cyanosis, clubbing or edema. LABORATORY DATA: Sodium 138, potassium 4.4, chloride 104, bicarbonate 27, BUN 20, creatinine is 1.2, AST 20, total bilirubin less than 0.1, alkaline phosphatase 58, ALT is 16, total protein 6.3, albumin 3.1. INR 1.0. WBC is 4.1, hemoglobin 8.3 after 1 unit of packed cells, platelet count 287. IMAGING: CT scan of the abdomen and pelvis on 09/15/2017 shows previous partial colectomy with colostomy of the descending colon in the left lower quadrant, sigmoid colon in the rectum are present without leakage of anastomosis proximally, circumferential wall thickening of the rectum, there is fluid and debris within the rectum, this could represent post-therapeutic changes, although neoplasm of the rectum may also be present. There is marked thickening of the anus and perineal structures which could represent post-therapeutic change versus neoplasm, circumferential wall thickening of the urinary bladder. No pelvic adenopathy is noted. No evidence of a small bowel obstruction. 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 ASSESSMENT AND PLAN: 1. Recurrent hematochezia from remaining sigmoid rectum Annmarie's pouch. 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 She is having no bleeding in her colostomy. She has undergone one flexible sigmoidoscopy with APC cautery by Dr. Glover last month, which appears to be helpful as she had no further bleeding for approximately 1 month. Because of recurrent bleeding and drop in her hemoglobin, I would recommend proceeding with a flexible sigmoidoscopy today for further evaluation. We will make further recommendations at that time. In the meantime, we will need to continue to monitor her hemoglobin closely. 2. Cholelithiasis without cholecystitis changes. Thank you for allowing me to participate in her care. <ELECTRONICALLY SIGNED> By: Magnus Newberry MD 09/19/17 0821 [id number] Magnus Newberry MD /nt
[2017-09-15 02:11] LABS: WBC 4.1 thou/uL (4.0-11.0)
[2017-09-15 02:12] LABS: HEMATOCRIT 20.4 % (37.0-47.0); HEMOGLOBIN 6.8 gm/dL (12.0-15.0); MCH 31.8 pg (26.0-34.0); MCHC 33.4 g/dL (28.0-37.0); MCV 95.3 fL (80.0-100.0); RBC 2.15 mil/uL (4.20-5.00); RDW 16.5 % (10.5-14.5)
[2017-09-15 02:23] LABS: ANION GAP 7 mmol/L (7-16); BUN 20 mg/dL (7-18); CALCIUM 8.6 mg/dL (8.5-10.1); CHLORIDE 104 mmol/L (98-107); CO2 27 mmol/L (21-32); CREATININE 1.2 mg/dL (0.6-1.0); GLUCOSE 116 mg/dL (74-106); POTASSIUM 4.4 mmol/L (3.5-5.1); SODIUM 138 mmol/L (136-145)
[2017-09-15 02:25] LABS: APTT 20.8 Seconds (24.5-32.8); PROTIME 9.3 Seconds (9.3-11.4)
[2017-09-15 02:29] LABS: ALBUMIN 3.1 g/dL (3.4-5.0); SGOT 20 U/L (15-37); SGPT 16 U/L (30-65); TOTAL BILIRUBIN < 0.1 mg/dL (<0.1-1.0); TOTAL PROTEIN 6.3 g/dL (6.4-8.2)
[2017-09-15 03:47] VITALS: BP 126/66
[2017-09-15 04:37] VITALS: BP 139/78; BP 150/80
[2017-09-15 08:00] VITALS: BP 123/61
[2017-09-15 11:46] VITALS: BP 136/77
[2017-09-15 15:44] VITALS: BP 109/67
[2017-09-15 19:50] VITALS: BP 123/71
[2017-09-16 05:05] VITALS: BP 109/69
[2017-09-16 05:34] LABS: HEMATOCRIT 23.7 % (37.0-47.0); HEMOGLOBIN 7.7 gm/dL (12.0-15.0); MCH 30.8 pg (26.0-34.0); MCHC 32.5 g/dL (28.0-37.0); MCV 94.8 fL (80.0-100.0); RBC 2.5 mil/uL (4.20-5.00); RDW 18.8 % (10.5-14.5)
[2017-09-16 08:15] VITALS: BP 123/60
[2017-09-16 17:31] VITALS: BP 143/119
[2017-09-16 20:02] VITALS: BP 161/74
[2017-09-17 08:00] VITALS: BP 105/88
[2017-09-17 12:06] LABS: CALCIUM 8.6 mg/dL (8.5-10.1); MAGNESIUM 2.3 mg/dL (1.8-2.4); POTASSIUM 4.8 mmol/L (3.5-5.1)
[2017-09-17 19:56] VITALS: BP 102/56
[2017-09-18] VITALS (7 sets, daily range): BP systolic 99–147; BP diastolic 57–93
[2017-09-18 12:58] LABS: ALBUMIN 2.9 g/dL (3.4-5.0); CALCIUM 8.7 mg/dL (8.5-10.1); POTASSIUM 4.1 mmol/L (3.5-5.1); TOTAL BILIRUBIN 0.2 mg/dL (<0.1-1.0); TOTAL PROTEIN 6.3 g/dL (6.4-8.2)
[2017-09-18 13:41] LABS: ABSOLUTE NEUTROPHILS 2.7 thou/uL (1.4-8.2); BASOPHILS 0.7 % (0.0-2.0); EOSINOPHILS 4.6 % (0.0-3.0); HEMATOCRIT 26.7 % (37.0-47.0); HEMOGLOBIN 8.4 gm/dL (12.0-15.0); LYMPHOCYTES 7.9 % (24.0-44.0); MCH 30.4 pg (26.0-34.0); MCHC 31.6 g/dL (28.0-37.0); MCV 96.3 fL (80.0-100.0); MONOCYTES 8.2 % (1.0-8.0); PLATELET COUNT 280 thou/uL (150-400); POLYS 78.6 % (36.0-66.0); RBC 2.77 mil/uL (4.20-5.00); RDW 18.5 % (10.5-14.5); WBC 3.5 thou/uL (4.0-11.0)
[2017-09-18 14:03] LABS: ANISOCYTOSIS 1+; MACROCYTES 1+; POLYCHROMASIA 1+
== END 2017-09-18 19:00 | disposition home or self-care (01) | DRG 378 ==
LOC: ER → EROBS 02:51 → 2N 02:51
PROVIDERS: Emergency Medicine; Hospitalist; Internal Medicine; Specialist
PROC: 0DJD8ZZ Inspection of Lower Intestinal Tract, Via Natural or Artificial Opening Endoscopic (ICD-10-PCS; principal; 2017-09-15)
PROC: 0W3P8ZZ Control Bleeding in Gastrointestinal Tract, Via Natural or Artificial Opening Endoscopic (ICD-10-PCS; 2017-09-17)
DX: K92.2 Gastrointestinal hemorrhage, unspecified (principal); D62 Acute posthemorrhagic anemia; K63.3 Ulcer of intestine; K62.7 Radiation proctitis; F03.90 Unspecified dementia, unspecified severity, without behavioral disturbance, psychotic disturbance, mood disturbance, and anxiety; E03.9 Hypothyroidism, unspecified; K80.20 Calculus of gallbladder without cholecystitis without obstruction; K64.8 Other hemorrhoids; K57.30 Diverticulosis of large intestine without perforation or abscess without bleeding; W88.1XXA Exposure to radioactive isotopes, initial encounter; Y93.89 Activity, other specified; Y92.89 Other specified places as the place of occurrence of the external cause; Y99.8 Other external cause status; Z85.038 Personal history of other malignant neoplasm of large intestine; Z93.3 Colostomy status; Z86.73 Personal history of transient ischemic attack (TIA), and cerebral infarction without residual deficits; Z92.3 Personal history of irradiation; Z90.710 Acquired absence of both cervix and uterus; Z85.42 Personal history of malignant neoplasm of other parts of uterus; Z79.899 Other long term (current) drug therapy; Z88.1 Allergy status to other antibiotic agents; Z88.2 Allergy status to sulfonamides; Z88.8 Allergy status to other drugs, medicaments and biological substances
CPT/HCPCS: 10081; 62110; 70005

== ENCOUNTER 2017-09-24 16:29 | Emergency (ER) | payer OTHER ==
[~2017-09-24] VITALS: Ht 157.5 cm; Wt 56.7 kg
[2017-09-24 17:20] LABS: HEMOGLOBIN 8.3 gm/dL (12.0-15.0); MCHC 33.1 g/dL (28.0-37.0); RDW 17.7 % (10.5-14.5)
[2017-09-24 17:21] LABS: HEMATOCRIT 24.9 % (37.0-47.0); MCH 30.9 pg (26.0-34.0); MCV 93.3 fL (80.0-100.0); PLATELET COUNT 329 thou/uL (150-400); RBC 2.67 mil/uL (4.20-5.00); WBC 10.2 thou/uL (4.0-11.0)
[2017-09-24 17:27] LABS: ANION GAP 7 mmol/L (7-16); BUN 19 mg/dL (7-18); CALCIUM 8.8 mg/dL (8.5-10.1); CHLORIDE 102 mmol/L (98-107); CO2 27 mmol/L (21-32); GLUCOSE 100 mg/dL (74-106); POTASSIUM 4.1 mmol/L (3.5-5.1); SODIUM 136 mmol/L (136-145)
[2017-09-24 17:33] LABS: ALBUMIN 2.9 g/dL (3.4-5.0); SGOT 22 U/L (15-37); SGPT 18 U/L (30-65); TOTAL BILIRUBIN < 0.1 mg/dL (<0.1-1.0); TOTAL PROTEIN 6.3 g/dL (6.4-8.2)
[2017-09-24 17:52] LABS: METAMYELOCYTES 1 %
[2017-09-24 17:53] LABS: ANISOCYTOSIS 1+
[2017-09-24 18:41] VITALS: BP 126/90
== END 2017-09-24 19:14 | disposition home or self-care (01) ==
LOC: ER 16:29
PROVIDERS: Physician Assistant
DX: K92.2 Gastrointestinal hemorrhage, unspecified (principal); D53.9 Nutritional anemia, unspecified; Z85.038 Personal history of other malignant neoplasm of large intestine; Z88.2 Allergy status to sulfonamides; Z88.8 Allergy status to other drugs, medicaments and biological substances

== ENCOUNTER 2017-10-02 14:15 | Emergency (ER) | payer OTHER ==
[~2017-10-02] VITALS: Ht 160 cm; Wt 77.1 kg
[2017-10-02 15:15] LABS: HEMATOCRIT 23.6 % (37.0-47.0); HEMOGLOBIN 7.7 gm/dL (12.0-15.0); MCH 30.4 pg (26.0-34.0); MCHC 32.7 g/dL (28.0-37.0); MCV 92.9 fL (80.0-100.0); RBC 2.54 mil/uL (4.20-5.00); RDW 17.5 % (10.5-14.5); WBC 3.7 thou/uL (4.0-11.0)
[2017-10-02 15:22] LABS: CALCIUM 8.8 mg/dL (8.5-10.1); POTASSIUM 4.4 mmol/L (3.5-5.1)
[2017-10-02 15:25] LABS: APTT 24.4 Seconds (24.5-32.8); PROTIME 9.3 Seconds (9.3-11.4)
[2017-10-02 15:30] LABS: ALBUMIN 2.9 g/dL (3.4-5.0); TOTAL BILIRUBIN 0.1 mg/dL (<0.1-1.0); TOTAL PROTEIN 6.2 g/dL (6.4-8.2)
[2017-10-02 20:51] VITALS: BP 102/54
== END 2017-10-02 20:51 | disposition short-term general hospital (02) ==
LOC: ER 14:15
PROVIDERS: Emergency Medicine
DX: K62.5 Hemorrhage of anus and rectum (principal); D64.9 Anemia, unspecified; Z85.038 Personal history of other malignant neoplasm of large intestine; Z88.1 Allergy status to other antibiotic agents; Z88.6 Allergy status to analgesic agent

== ENCOUNTER 2018-04-19 22:51 | Inpatient (IN) | payer OTHER ==
[~2018-04-19] VITALS: Ht 5.1 cm; Wt 81.6 kg
--- NOTE | ~2018-04-19 | O ---
[facility] [place] [address] OPERATIVE REPORT Name: JESSE BESS Room #: 454-P ADM IN M.R.#: [id number] Admission: 04/20/18 Attend Phys: Carlton Hill MD Discharge: Date of : 42 Report #: [id number] THIS REPORT FOR: //name// CC: Edwige Hill [facility] physician/PCP DATE OF SERVICE: 04/21/2018 PREOPERATIVE DIAGNOSIS: Left hip femoral neck fracture, displaced. POSTOPERATIVE DIAGNOSIS: Left hip femoral neck fracture, displaced. PROCEDURE PERFORMED: Left hip hemiarthroplasty, unipolar. SURGEON: Corwin Swartz MD INTERPRETER: Leonila Live PA-C. ANESTHESIA: General. FLUIDS: 750 mL crystalloid. ESTIMATED BLOOD LOSS: Approximately 50 mL. IMPLANTS UTILIZED: Dunlap and Nephew Synergy porous femoral component, size 9 with +0 taper sleeve assembly and 46 mm unipolar head, pressfit. DESCRIPTION OF PROCEDURE: After proper identification of the patient and operative site in preoperative holding area, the operative site was signed by myself. Prophylactic antibiotics given. The patient's son had signed the consent and was the patient's durable power of employment attorney for medical decision making: The patient was brought back to the operative suite after being cleared by the Medicine Service. After induction of satisfactory general anesthesia, she was carefully positioned in the right lateral position. The pelvis was stabilized. Left hip was sterilely prepped and draped in the usual manner. Posterior approach to the hip was planned. Final skin draping, after sterile prep and drape, with Ioban was utilized. Skin was incised sharply. Full thickness skin flaps were developed. Gluteal fascia was identified and split longitudinally. Charnley retractor was carefully placed to retract the soft tissues. Piriformis tendon was identified, tagged and released. T-shaped capsulotomy was performed and the fracture hematoma was evacuated, femoral head was removed with a corkscrew and measured 46 mm on the back table. Articular surface of the acetabulum was otherwise intact. No obvious evidence of an acetabular fracture was noted. Approximately 1 cm above the lesser trochanter, an osteotomy of the femoral head was performed. Next, the canal was opened by [facility] [address] [place] [address] OPERATIVE REPORT Name: JESSE BESS Room #: 454-P [facility] IN M.R.#: [id number] Admission: 04/20/18 Attend Phys: Carlton Hill MD Discharge: Date of : 42 Report #: [id number] hand reaming and was sequentially reamed and then broached up to a size 9 stem. Due to the patient's excellent fit and cortices noted on the radiographs, a press fit stem was utilized. Trial components matched the implanted components mentioned above and equal leg lengths are noted on the operative table with the +0 neck. Excellent stability was afforded and the trial implants were removed. The wound and canal was thoroughly irrigated with antibiotic irrigant. This was dried. A press-fit size 9 stem was carefully impacted into position and had excellent stability. Trial components were again utilized and then the final components inserted with a 46 mm unipolar head with +0 sleeve, hip was stable throughout a full range of motion, equal leg lengths were noted. Capsule was repaired with #2 FiberWire. Piriformis was repaired with #2 FiberWire. One gram of vancomycin powder had been utilized, half of it deep, half of it more superficial. 0 Vicryl was used to close the gluteal fascia, followed by 2-0 Vicryl and a running Monocryl stitch. A Dunlap and Nephew CURTIS dressing was applied. At time of dictation, the patient was still in the operative suite with anticipated discharge to recovery room in stable condition. Qualified speech language assistant utilized throughout the entire procedure to aid in patient limb positioning, visualization and retraction of soft tissues, instrument passage, closure and dressing application. By: 1021 1057 Corwin Swartz MD /nt
--- NOTE | ~2018-04-19 | EKG ---
[address] [email or web address] [address] ELECTROCARDIOGRAM REPORT Name: JESSE BESS Room #: 454-P [facility] IN M.R.#: [id number] Admission: 04/20/18 Attend Phys: Kylah Adames Discharge: 04/23/18 Date of : 42 Report #: [id number] THIS REPORT FOR: //name// [facility] ED Test Date: 2018-04-20 Test Time: 00:12:35 Pat Name: JESSE BESS Department: Room: [facility] Gender: F Hyperbaric Technician: Kathy JOLLEY : 1940 Requested By: Storm Wade Order Number: [id number] MD: Fortunato Arguello Measurements Intervals [place] Rate: 70 P: -19 FL: 213 QRS: -40 QRSD: 92 T: 86 QT: 391 QTc: 422 Interpretive Statements Sinus rhythm Borderline prolonged FL interval Left anterior fascicular block LVH with secondary repolarization abnormality Electronically Signed On 04-26-2018 14:17:15 CDT by Fortunato Arguello [email or web address] <ELECTRONICALLY SIGNED> By: Fortunato Arguello MD 04/26/18 1417 001 0012 Fortunato Arguello MD /EVARISTO
--- NOTE | ~2018-04-19 | HC ---
[facility] [place] [address] CONSULTATION Name: JSESE BESS Room #: 454-P ADM IN M.R.#: [id number] Admission: 04/20/18 Attend Phys: Carlton Hill MD Discharge: Date of : 42 Report #: [id number] THIS REPORT FOR: //name// CC: Edwige Hill [facility] physician/PCP DATE OF SERVICE: 04/20/2018 HISTORY OF PRESENT ILLNESS: The patient is a pleasantly confused 77-year-old female who was admitted through the Emergency Department at [facility] yesterday status post unwitnessed fall. The patient reports that she tripped and fell and landed on her left leg. The patient reports pain in the leg now with any attempted range of motion. Pain is under good control at rest. The patient reports that she lives with her son and normally ambulates without a walker. ALLERGIES: FENTANYL, SULFA, SULFAMETHOXAZOLE, TRIMETHOPRIM. MEDICATIONS: Please see MAR for current medications, but reported home medications include levothyroxine, simvastatin. PAST MEDICAL HISTORY: Significant for colon cancer. PAST SURGICAL HISTORY: Significant for colostomy. SOCIAL HISTORY: The patient reports that she lives with family members and typically ambulates without a walker or cane. She denies any tobacco, alcohol or drug use. PHYSICAL EXAMINATION: VITAL SIGNS: Weight 81 kg, temperature 36.8 degrees Celsius, blood pressure 156/84. EXTREMITIES: Left lower extremity is neurovascularly intact, tenderness to palpation of the anterior hip, pain with attempted passive range of motion of the left hip. No tenderness to palpation of the anterior thigh, left knee, calf or foot. Pulses are present and equal bilaterally. IMAGING: Two views of the left hip show a left femoral neck fracture, 2 views of the left tib-fib show no acute osseous findings. ASSESSMENT: Displaced left femoral neck fracture. PLAN: Discussed the patient's diagnosis and treatment options today. The patient is ambulatory, and we would like to consider left hip hemiarthroplasty. Unfortunately, her DPOA is not at bedside today and we are attempting to [address] [address] CONSULTATION Name: JESSE BESS Room #: 454-P ADM IN M.R.#: [id number] Admission: 04/20/18 Attend Phys: Carlton Hill MD Discharge: Date of : 42 Report #: [id number] reach her son who is the DPOA by phone to discuss proceeding with left hip hemiarthroplasty. <ELECTRONICALLY SIGNED> By: KT Alston 04/21/18 1039 0950 1000 KT Alston /nt
[2018-04-19 22:53] VITALS: BP 164/85
[2018-04-19] MEDS ORDERED: SIMVASTATIN40 MG (23:03)
[2018-04-19 23:39] LABS: ABSOLUTE NEUTROPHILS 4.7 thou/uL (1.4-8.2); EOSINOPHILS 1.7 % (0.0-3.0); HEMATOCRIT 35.6 % (37.0-47.0); HEMOGLOBIN 12.2 gm/dL (12.0-15.0); LYMPHOCYTES 6.3 % (24.0-44.0); MCH 31.9 pg (26.0-34.0); MCHC 34.2 g/dL (28.0-37.0); MCV 93.5 fL (80.0-100.0); MONOCYTES 7.9 % (1.0-8.0); PLATELET COUNT 222 thou/uL (150-400); POLYS 83.1 % (36.0-66.0); RBC 3.81 mil/uL (4.20-5.00); RDW 13.2 % (10.5-14.5); WBC 5.7 thou/uL (4.0-11.0)
[2018-04-19 23:46] LABS: CALCIUM 9.2 mg/dL (8.5-10.1); CREATININE 1.3 mg/dL (0.6-1.0); POTASSIUM 4.3 mmol/L (3.5-5.1)
[2018-04-20 00:43] LABS: URINE BILIRUBIN NEGATIVE (Negative); URINE BLOOD NEGATIVE (Negative); URINE CLARITY CLEAR; URINE COLOR YELLOW; URINE GLUCOSE-RANDOM* NEGATIVE (Negative); URINE KETONES NEGATIVE (Negative); URINE LEUKOCYTES-REFLEX NEGATIVE (Negative); URINE NITRITE-REFLEX NEGATIVE (Negative); URINE PROTEIN (DIPSTICK) TRACE (Negative); URINE UROBILINOGEN 0.2 E.U./dl (0.2-1.0)
[2018-04-20 01:55] VITALS: BP 163/58
[2018-04-20 02:48] VITALS: BP 97/53
[2018-04-20 03:45] VITALS: BP 140/70
[2018-04-20 08:29] VITALS: BP 156/84
[2018-04-20 09:47] LABS: POTASSIUM 4.2 mmol/L (3.5-5.1)
[2018-04-20 16:32] VITALS: BP 173/67
[2018-04-20 19:48] VITALS: BP 150/83
[2018-04-21] VITALS (11 sets, daily range): BP systolic 96–149; BP diastolic 44–84
[2018-04-22 03:59] VITALS: BP 108/41
[2018-04-22 07:41] VITALS: BP 87/51
[2018-04-22 15:55] VITALS: BP 135/80
[2018-04-22 20:26] VITALS: BP 110/61
[2018-04-23 00:44] VITALS: BP 120/65
[2018-04-23 04:28] VITALS: BP 108/64
[2018-04-23 05:08] LABS: HEMATOCRIT 25.2 % (37.0-47.0); HEMOGLOBIN 8.6 gm/dL (12.0-15.0); MCH 32.2 pg (26.0-34.0); MCHC 34.2 g/dL (28.0-37.0); MCV 94.2 fL (80.0-100.0); RBC 2.68 mil/uL (4.20-5.00); WBC 4.8 thou/uL (4.0-11.0)
[2018-04-23 08:17] VITALS: BP 108/65
[2018-04-23] MEDS ORDERED: BISAC-EVAC10 MG RECTAL (09:41)
[2018-04-23] MEDS ORDERED: HYDROCODON-ACE1 EAC7 PO (09:41)
[2018-04-23] MEDS ORDERED: ENOXAPARIN40 MG/0.1 SUBQ (09:42)
== END 2018-04-23 16:59 | DRG 469 ==
LOC: ER 22:51 → EROBS 04-20 01:21 → 4W 04-20 01:21
PROVIDERS: Emergency Medicine; Hospitalist; Nurse Practitioner Family
PROC: 0SRS0JA Replacement of Left Hip Joint, Femoral Surface with Synthetic Substitute, Uncemented, Open Approach (ICD-10-PCS; principal; 2018-04-21)
DX: S72.002A Fracture of unspecified part of neck of left femur, initial encounter for closed fracture (principal); N17.0 Acute kidney failure with tubular necrosis; F03.90 Unspecified dementia, unspecified severity, without behavioral disturbance, psychotic disturbance, mood disturbance, and anxiety; E78.5 Hyperlipidemia, unspecified; E03.9 Hypothyroidism, unspecified; Z85.038 Personal history of other malignant neoplasm of large intestine; Z93.3 Colostomy status; Z88.2 Allergy status to sulfonamides; Z88.8 Allergy status to other drugs, medicaments and biological substances; W01.0XXA Fall on same level from slipping, tripping and stumbling without subsequent striking against object, initial encounter; Y93.01 Activity, walking, marching and hiking; Y92.89 Other specified places as the place of occurrence of the external cause; Y99.8 Other external cause status; Z79.899 Other long term (current) drug therapy
CPT/HCPCS: 10040; 50101; 50382; 50414; 50939; 51057; 51225; 51226; 51412; 53078; 53369; 56460; 56525; 56530; 57103; 62110; 62900; 70005

== ENCOUNTER 2018-07-04 09:21 | Emergency (ER) | payer OTHER ==
[~2018-07-04] VITALS: Ht 157.5 cm; Wt 70.3 kg
[~2018-07-04 09:21] MED LIST changes: +BISAC-EVAC10 MG RECTAL; +ENOXAPARIN40 MG/0.1 SUBQ; +HYDROCODON-ACE1 EAC7 PO; +SIMVASTATIN40 MG
[2018-07-04 09:39] LABS: URINE BILIRUBIN NEGATIVE (Negative); URINE BLOOD TRACE (Negative); URINE CLARITY CLEAR; URINE COLOR YELLOW; URINE GLUCOSE-RANDOM* NEGATIVE (Negative); URINE KETONES NEGATIVE (Negative); URINE LEUKOCYTES-REFLEX NEGATIVE (Negative); URINE NITRITE-REFLEX NEGATIVE (Negative); URINE PROTEIN (DIPSTICK) NEGATIVE (Negative); URINE SPECIFIC GRAVITY 1.015 (1.005-1.035); URINE UROBILINOGEN 0.2 E.U./dl (0.2-1.0)
[2018-07-04 09:58] LABS: ABSOLUTE NEUTROPHILS 2.4 thou/uL (1.4-8.2); BASOPHILS 1.9 % (0.0-2.0); EOSINOPHILS 6.7 % (0.0-3.0); HEMATOCRIT 35.8 % (37.0-47.0); HEMOGLOBIN 11.9 gm/dL (12.0-15.0); LYMPHOCYTES 13.1 % (24.0-44.0); MCH 30.4 pg (26.0-34.0); MCHC 33.1 g/dL (28.0-37.0); MCV 91.7 fL (80.0-100.0); MONOCYTES 10.9 % (1.0-8.0); PLATELET COUNT 279 thou/uL (150-400); POLYS 67.4 % (36.0-66.0); RBC 3.91 mil/uL (4.20-5.00); RDW 13.9 % (10.5-14.5); WBC 3.6 thou/uL (4.0-11.0)
[2018-07-04 10:07] LABS: CALCIUM 9.6 mg/dL (8.5-10.1); POTASSIUM 4.3 mmol/L (3.5-5.1)
[2018-07-04] MEDS ORDERED: TRAMADOL 50 MG50 MG PO (10:41)
[2018-07-04] MEDS ORDERED: SENNA8.6 MG PO (11:31)
[2018-07-04 12:02] VITALS: BP 170/92
== END 2018-07-04 12:03 | disposition home or self-care (01) ==
LOC: ER 09:21
PROVIDERS: Physician Assistant
DX: R35.0 Frequency of micturition (principal); K59.00 Constipation, unspecified; F03.90 Unspecified dementia, unspecified severity, without behavioral disturbance, psychotic disturbance, mood disturbance, and anxiety; E78.5 Hyperlipidemia, unspecified; E03.9 Hypothyroidism, unspecified; Z88.4 Allergy status to anesthetic agent; Z88.2 Allergy status to sulfonamides; Z88.8 Allergy status to other drugs, medicaments and biological substances; Z86.2 Personal history of diseases of the blood and blood-forming organs and certain disorders involving the immune mechanism; Z85.038 Personal history of other malignant neoplasm of large intestine

== ENCOUNTER 2018-10-16 15:34 | Inpatient (IN) | payer OTHER ==
[~2018-10-16] VITALS: Ht 157.5 cm; Wt 63.5 kg
[~2018-10-16 15:34] MED LIST changes: +SENNA8.6 MG PO; +TRAMADOL 50 MG50 MG PO
[2018-10-16 15:36] VITALS: BP 142/90
[2018-10-16 17:34] LABS: ABSOLUTE NEUTROPHILS 7.4 thou/uL (1.4-8.2); BASOPHILS 0.7 % (0.0-2.0); EOSINOPHILS 0.3 % (0.0-3.0); HEMATOCRIT 38.6 % (37.0-47.0); HEMOGLOBIN 12.9 gm/dL (12.0-15.0); LYMPHOCYTES 4.3 % (24.0-44.0); MCH 31.1 pg (26.0-34.0); MCHC 33.5 g/dL (28.0-37.0); MCV 92.9 fL (80.0-100.0); MONOCYTES 6.3 % (1.0-8.0); PLATELET COUNT 290 thou/uL (150-400); POLYS 88.4 % (36.0-66.0); RBC 4.15 mil/uL (4.20-5.00); RDW 14.4 % (10.5-14.5); WBC 8.4 thou/uL (4.0-11.0)
[2018-10-16 17:42] LABS: ANION GAP 8 mmol/L (7-16); BUN 25 mg/dL (7-18); CALCIUM 9.7 mg/dL (8.5-10.1); CHLORIDE 92 mmol/L (98-107); CO2 25 mmol/L (21-32); CREATININE 1.2 mg/dL (0.6-1.0); GLUCOSE 133 mg/dL (74-106); POTASSIUM 5.4 mmol/L (3.5-5.1); SODIUM 125 mmol/L (136-145)
[2018-10-16 17:54] LABS: ALBUMIN 3.5 g/dL (3.4-5.0); DIRECT BILIRUBIN < 0.1 mg/dL (<0.1-0.3); LIPASE 540 U/L (73-393); SGOT 51 U/L (15-37); SGPT 52 U/L (30-65); TOTAL BILIRUBIN 0.4 mg/dL (<0.1-1.0); TOTAL PROTEIN 8.3 g/dL (6.4-8.2); TROPONIN-I <0.06 ng/mL (<0.06)
[2018-10-16 19:14] VITALS: BP 141/69
[2018-10-16 19:30] VITALS: BP 132/68
[2018-10-16 23:51] VITALS: BP 149/77
[2018-10-17 04:17] VITALS: BP 151/82
--- NOTE | 2018-10-17 06:04 | NUR ---
PT ARRIVED TO UNIT APPROX 2014, IRRITABLE AND CUSSING AT STAFF. ABLE TO SCOOT FROM ED CART TO BED. COMPLETED ADMISSION, PT POOR HISTORIAN AND UNABLE TO ACCURATELY ANSWER QUESTIONS, CONSENTS UNABLE TO BE SIGNED. NOT TOLERATING PLACEMENT OF NG TUBE, PER ED STAFF PT PULLED OUT TWO NG'S IN THE EMERGENCY ROOM. ORDERS ON CHART FROM DR. TOLEDO TO UTILIZE SOFT RESTRAINTS SO PT WILL KEEP NG TUBE IN; FLOOR WORKER TRANSFER BAY ASSISTED TO PLACE NG IN RIGHT NARE AT 67 CM. INITIALLY ONLY DRAINED A FEW ML'S, BUT AFTER ADJUSTING TUBING AND SUCTION METER, THE NG DRAINED 1200 ML DARK GREEN/BROWN LIQUID IN LESS THAN 10 MINUTES, HAS CONTINUED TO DRAIN OVERNIGHT. PT IN RESTRAINTS PER PROTOCOL, ARMS RELEASED ONE AT A TIME EACH HOUR OVERNIGHT, REGULARLY PULLED PT UP AND TURNED. ONCE THE LARGE AMOUNT OF FLUID DRAINED THROUGH NG, PT SLEPT MOST OF THE NIGHT. THIS AM AFTER VS, PT WOKE UP AND ASKED TO USE BATHROOM, ASSISTED TO BSC; VERY WEAK AND UNSTEAD ON FEET. PT KEPT COMMENTING ON THE TUBE, THAT IT WAS UNCOMFORTABLE, TRYING TO MESS WITH IT, ONCE SHE WAS BACK IN BED HAD TO REAPPLY RESTRAINTS TO KEEP HER FROM PULLING IT OUT. NO OTHER CONCERNS, WILL CONTINUE TO MONITOR.
[2018-10-17 07:45] VITALS: BP 139/59
--- NOTE | 2018-10-17 07:51 | EKG ---
[place] [address] [facility] [place] [address] ELECTROCARDIOGRAM REPORT Name: JESSE BESS Room #: 420-P ADM IN M.R.#: [id number] ������������������ Admission: 10/16/18 ������������������ Attend Phys: Edwige Robins MD Discharge: ������������������ Date of : 42 Report #: [id number] ����������������������������������������������������������������� [id number] THIS REPORT FOR: //name// [facility] ED Test Date: 2018-10-16 Test Time: 16:57:10 Pat Name: JESSE BESS Department: Room: 420 Gender: F Competitive Intelligence Analyst: JEIMY : 1940 Requested By: Araceli Flanagan Order Number: [id number] MD: Markos Garcia Measurements Intervals [place] Rate: 62 P: 31 AL: 213 QRS: -37 QRSD: 100 T: 114 QT: 432 QTc: 439 Interpretive Statements Sinus rhythm Borderline prolonged AL interval LVH with secondary repolarization abnormality Poor R wave progression Compared to ECG 04/20/2018 00:12:35 No significant change was found Electronically Signed On 10-17-2018 7:50:53 CDT by Markos Garcia [email or web address] ��������������������������������������������� <ELECTRONICALLY SIGNED> ���������������������������������������� By: Markos Garcia MD, [facility] ��������������������������������������������� 10/17/18 0750 1657 1657 Markos Garcia MD, [facility] /EPI
--- NOTE | 2018-10-17 09:01 | NUR ---
ASSESMENT COMPLETED. VSS. CONFUSED. LETHARGIC- AROUSES WITH VERBAL STIMULI. NG TO LIS- GREEN OUTPUT. NO OUTPUT NOTED FROM COLOSTOMY. CONSERVATIVE TREATMENT PER DR. MEJIAS. PT RESITN IN BED. RESTRAINTS ON- REASSESED Q2. PASSIVE ROM. REPOSITIONED. IVF INFUSING. WILL CONT. TO MONITOR.
[2018-10-17 10:34] LABS: HEMATOCRIT 36.5 % (37.0-47.0); HEMOGLOBIN 12.3 gm/dL (12.0-15.0); MCHC 33.6 g/dL (28.0-37.0); MCV 92.3 fL (80.0-100.0); RBC 3.96 mil/uL (4.20-5.00); RDW 14.3 % (10.5-14.5); WBC 4.4 thou/uL (4.0-11.0)
[2018-10-17 10:42] LABS: CALCIUM 9.1 mg/dL (8.5-10.1); CREATININE 1.1 mg/dL (0.6-1.0); POTASSIUM 4.2 mmol/L (3.5-5.1)
--- NOTE | 2018-10-17 12:38 | NUR ---
SPOKE TO SON/DPOA, UPDATED ON PT STATUS, NOTIFIED OF PT BEING ON RESTRAINTS. RESTRAINTS REASSESSED AND REAPPLIED. NOTED PT TOUCHING NG TUBE WHEN OFF RESTRAINTS. WILL CONT. TO MONITOR.
--- NOTE | 2018-10-17 16:14 | NUR ---
ASSESSMENT-PT LIVES AT HOME WITH HER SON RYDER AND HER DTR. SON SAYS HE QUIT HIS JOB YRS AGO ABOUT 5 TO TAKE CARE OF HIS MOM. DTR WORKS NIGHTS. PT HAS AWALKER AT HOME BUT SON SAYS SHE DOES NOT USE IT MUCH. SON DOES THE COOKING, CLEANING AND LAUNDRY AND PAYS THE BILLS. HE SAYS HE ASSISTS HER TO STEP IN THE SHOWER THEN PT DOES HER OWN SHOWER. PT HAS HAD HH SERVICES IN THE PAST AND SON WOULD BE OPEN TO HAVING HH AGAIN. THERAPIES HAVE BEEN ORDERED AND AWAITING THEIR REC. FOLLOWING TO ASSIST WITH DC PLANNING.
[2018-10-17 16:45] VITALS: BP 145/69
[2018-10-17 19:40] VITALS: BP 153/87
[2018-10-18 03:46] LABS: CALCIUM 8.4 mg/dL (8.5-10.1); POTASSIUM 3.6 mmol/L (3.5-5.1)
[2018-10-18 04:21] LABS: HEMATOCRIT 33.3 % (37.0-47.0); HEMOGLOBIN 11.4 gm/dL (12.0-15.0); MCH 31.7 pg (26.0-34.0); MCHC 34.2 g/dL (28.0-37.0); MCV 92.6 fL (80.0-100.0); RBC 3.6 mil/uL (4.20-5.00); RDW 14.5 % (10.5-14.5); WBC 3.6 thou/uL (4.0-11.0)
[2018-10-18 05:19] VITALS: BP 152/89
[2018-10-18 07:10] VITALS: BP 164/87
--- NOTE | 2018-10-18 17:23 | NUR ---
PT ASSESSED THIS AM. NG IRRIGATED AND DRAINAGE LT GREEN W/ OCC SEDIMENT. PT HAS SHORT TERM MEMORY LOSS AND ASKS OVER AND OVER ABOUT HAVING COFFEE. NATACHA SOFT RESTRAINTS TO KEEP FROM PULLING NG OUT. UP TO THE CHAIR FOR SEVERAL HOURS. AMBULATED TO THE BR TO VOID.
[2018-10-18 18:34] VITALS: BP 150/110
[2018-10-18 19:45] VITALS: BP 178/91
[2018-10-19 03:45] VITALS: BP 155/78
[2018-10-19 04:28] LABS: HEMATOCRIT 33.8 % (37.0-47.0); HEMOGLOBIN 11.5 gm/dL (12.0-15.0); MCH 31.6 pg (26.0-34.0); MCHC 33.9 g/dL (28.0-37.0); MCV 93.2 fL (80.0-100.0); RBC 3.63 mil/uL (4.20-5.00); WBC 3.8 thou/uL (4.0-11.0)
[2018-10-19 04:38] LABS: CALCIUM 8.3 mg/dL (8.5-10.1); CREATININE 0.9 mg/dL (0.6-1.0); POTASSIUM 3.5 mmol/L (3.5-5.1)
[2018-10-19 07:37] VITALS: BP 146/73
--- NOTE | 2018-10-19 07:46 | NUR ---
NG TO LIS. PT DENIES NAUSEA OR VOMITING. UP TO BSC WITH CLOSE ASSIST. AFEBRILE. FLUIDS INFUSING. NPO.
--- NOTE | 2018-10-19 11:35 | NUR ---
Assumed pt care at 7am.Pt in bed very impulsive and agitated.Constantly asking for coffee and food.Rn reorient pt and oral care done.COMplete bath and bed change given by fruit washer.Pt was transfered to chair and was there for one hour before thransfed back to bed.Dr Robins here,order noted.Ng to lis with moderate brown drainage.Bilat wrist restraint on to prevent pt fron pulling ng.Will continue to monitor.
--- NOTE | 2018-10-19 15:47 | NUR ---
HS SPOKE WITH RYDER BESS ON THE PHONE REGARDING PT. MR. BESS WOULD LIKE INFORMATION ON HIS MOTHER AND WANTS DR TOLEDO'S NUMBER TO CALL HIM. SON INFORMED THAT WITHOUT A CONFIDENTIALITY CODE I CANNOT GIVE MEDICAL CHART INFORMATION OUT OVER THE PHONE. THE SON STATES IN A LOUD TONE THAT HE HAS NEVER NEEDED A CODE. SON WAS ALSO UPSET AND IN A LOUD TONE STATING THAT THE PRIMARY NURSE ON 4E TAKING CARE OF THE PT TODAY WAS RUDE TO HIM ON THE PHONE AND TOLD HIM THAT SHE HAD OTHER PATIENTS TO TAKE CARE OF AFTER NOT BEING ABLE TO GIVE HIM DR TOLEDO'S NUMBER. AFTER GIVING SON THE ANSWERING SERVICE NUMBER AND OFFICE NUMBER OF DR TOLEDO SON HUNG UP ON HS. CALLED DR TOLEDO TO INFORM HIM OF FAMILY COMPLAINT AND REQEST FOR INFO AND DR TOLEDO STATES HE WILL CALL THE SON TOMORROW MORNING AFTER HE ROUNDS ON THE PT.
[2018-10-19 16:59] VITALS: BP 1850/70
[2018-10-19 20:00] VITALS: BP 154/100
--- NOTE | 2018-10-20 04:12 | NUR ---
Alert and disoriented; patient peaceful. Restraint was discontinued at 1900. The staff and another RN (Sarah) tried to insert the NG tube, patient became combative with it. NG tube was not inserted successfully. Nursing coal and ash supervisor was reported to. Patient stomach was hypoactive, hardly heard bowl sounds, especially on the left side; no stool output in the colostomay bag; supervior suggest the staff call Dr. Avila around 0630. Patient denied nausea, no vomitting. Kub ON 10/18 checkd. Patient bed rest now, vss, IVF. Will keep monitoring.
[2018-10-20 04:17] LABS: CREATININE 0.9 mg/dL (0.6-1.0); HEMATOCRIT 31.1 % (37.0-47.0); HEMOGLOBIN 10.5 gm/dL (12.0-15.0); MCH 31.3 pg (26.0-34.0); MCHC 33.8 g/dL (28.0-37.0); MCV 92.5 fL (80.0-100.0); PLATELET COUNT 190 thou/uL (150-400); POTASSIUM 3.1 mmol/L (3.5-5.1); RBC 3.37 mil/uL (4.20-5.00); RDW 13.9 % (10.5-14.5); WBC 3.5 thou/uL (4.0-11.0)
[2018-10-20 05:05] VITALS: BP 169/83
[2018-10-20 08:27] LABS: ABSOLUTE NEUTROPHILS 2.6 thou/uL (1.4-8.2)
[2018-10-20 08:41] VITALS: BP 129/66
--- NOTE | 2018-10-20 13:38 | NUR ---
ASSUMED CARE AT 0700, SHIFT ASSESSMENT DONE, NPO. VSS. DENIES ANY PAIN, NAUSEA. DR TOLEDO WAS HERE THIS MORNING, OREDERED A FLLETS ENEMA THORUGH THE COLOSTOMY SITE, OREDERED PPN. FLEETS ENEMA WAS DONE, AWAITING FOR RESULTS. PPN STARTD. DR PRINCE ROUNDED AND INDICATED IT'S ALRIGHT TO KEEP THE NG TUBE OUT FOR NOW. PATINET SLEEPY FOR MOST OF THEDAY. WILL CONTINUE TO ASSESS AND ASSIST WITH ADLs NEEDED.
[2018-10-20 16:45] VITALS: BP 174/72
[2018-10-20 20:08] VITALS: BP 124/61
--- NOTE | 2018-10-21 04:55 | NUR ---
PT ALERT WITH CONFUSION.ASSESSMENT COMPLETED.PT REQUESTED FOR FOOD COUPLE OF TIMES,WAS REMINDED THAT SHE IS NPO,ICE CHIPS WITH ORAL CARE DONE.UP WITH SBA TO BSC.BP ELEVATED AT START OF SHIFT,VSS SO FAR.PT CONT ON PPN,TOLERATING WELL.COLOSTOMY STILL EMPTY,NO STOOL NOTED.PT RESTING ON HER BED AT THIS TIME.FALL PRECAUTIONS IN PLACE,CALL LIGHT WITHIN REACH.
[2018-10-21 08:35] VITALS: BP 117/72
--- NOTE | 2018-10-21 13:33 | NUR ---
on-going assessment: CM REVIEWED CHART AND SPOKE WITH PATIENTS SON RYEDR. CM DISCUSSED THAT PER PHYSICAL THERAPY EVAL PT IS RECOMMENDING 24 HOUR SUPERVISION WITH HH VS SNF. RYDER DISCUSSED MULTIPLE STRESSORS OTHER FAMILY MEMBERS DO NOT HELP HE OUT AND HE IS THE ONLY ONE TO PROVIDE CARE/TAKE CARE OF APPTS AND ALL OF THAT FOR HIS MOTHER. SON STATING HE NO LONGER WORKS BECAUSE HE HAS TO PROVIDE ALL THE CARE FOR HER. SON STATING HE PREFERS SHE GO TO SNF BEFORE COMING BACK HOME. PATIENT HAS BEEN TO [facility] IN THE PAST. SON WANTED REFERRAL SENT THERE. CM NOTIFIED HEALTH SERVICE COORDINATOR TO FAX REFERRAL. CM WILL CONTINUE TO FOLLOW TO ASSIST NEEDED.
--- NOTE | 2018-10-21 15:18 | NUR ---
FAXED REFERRAL TO [facility] SPOKE WITH LIVE IN ADM.SHE RECEIVED REFERRAL AND WILL REVIEW. ANTICIPATE DC IN 1-2 DAYS. DCP TO FOLLOW.
[2018-10-21 17:19] VITALS: BP 169/93
--- NOTE | 2018-10-21 19:31 | NUR ---
ASSUMED CARE AT 0700, SHIFT ASSESSMENT DONE, MEDS GIVEN, VSS. DISORIENTED, ON CLEAR LIQUIDS, TOLERATING WELL. DR MEJIAS ORDERED ANOTHER ROUND OF FLEET'S ENEMA THROUGH THE STOMA. IT WAS PROVIDED THIS AFTERNOON. SECONDARY SOCIAL STUDIES TEACHER BM YET, PASSING GAS. ON PPN, WILL CONTINUE TO ASSESS AND ASSIST WITH ADLs NEEDED.
[2018-10-21 20:38] VITALS: BP 174/83
--- NOTE | 2018-10-22 04:22 | NUR ---
ASSESSMENT COMPLETED.PT DENIED PAIN BUT REQUESTED FOR FOOD.CLAER LIQUIDS PROVIDED.UP WITH ASSIST TO BSC.PPN INFUSING ORDERED.NO BM NOTED ON HER COLOSTOMY SO FAR.PT RESTING ON HER BED AT THIS TIME.FALL PRECAUTIIONS IN PLACE,CALL LIGHT WITHIN REACH.
[2018-10-22 05:23] LABS: HEMATOCRIT 27.7 % (37.0-47.0); HEMOGLOBIN 9.6 gm/dL (12.0-15.0); MCH 31.5 pg (26.0-34.0); MCHC 34.6 g/dL (28.0-37.0); MCV 90.9 fL (80.0-100.0); PLATELET COUNT 184 thou/uL (150-400); RBC 3.05 mil/uL (4.20-5.00); RDW 13.9 % (10.5-14.5); WBC 3.5 thou/uL (4.0-11.0)
[2018-10-22 05:33] LABS: CALCIUM 8.1 mg/dL (8.5-10.1); CREATININE 0.9 mg/dL (0.6-1.0); POTASSIUM 4.3 mmol/L (3.5-5.1)
[2018-10-22 06:06] LABS: ABSOLUTE NEUTROPHILS 2.3 thou/uL (1.4-8.2)
[2018-10-22 07:10] VITALS: BP 122/91
--- NOTE | 2018-10-22 14:32 | NUR ---
ASSUMED CARE AT 0700, SHIFT ASSESSMENT DONE, MEDS GIVEN, VSS. DENIES ANY PAIN, NAUSEA, VOMITING. TOLERATING FULL LIQUID DIET. AGITATED AT TIMES, PRN LORAZEPAM GIVEN. COLOSTOMY PRODUCING SOME OUTPUT. WILL CONTINUE TO ASSESS AND ASSIST WITH ADLs NEEDED.
--- NOTE | 2018-10-22 15:40 | NUR ---
ON-GOING ASSESSMENT: TUSHAR REVIEWED CHART. TUSHAR HAD NOT RECEIVED A CALL BACK FROM [facility] SO CONTACTED THE ADMISSION DEPT. LIVE IN ADMISSIONS STATES SHE HAD A NOT THAT THEY CANNOT ACCEPT PATIENT. LIVE DID NOT KNOW DETAILS BUT STATED SHE WOULD CHECK AND CONTACT CM BACK. TUSHAR CONTACTED PATIENTS SON RYDER WHOM SHE LIVES WITH TO NOTIFY. HE WOULD LIKE TO KNOW WHY THEY CANNOT ACCEPT HER, CM VOICED THAT SHE IS SUPPOSED TO CALL CM BACK. TUSHAR DISCUSSED OTHER SNF OPTIONS FOR PATIENT AND HE WANTED A REFERRAL SENT TO [facility] AND STATES HE MAY TOUR THERE TOMORROW. CM FAXED REFERRAL AND LEFT WITH SARAH IN ADMISSIONS. TUSHAR WILL CONTINUE TO FOLLOW.
[2018-10-22 16:25] VITALS: BP 152/109
[2018-10-22 19:30] VITALS: BP 153/80
--- NOTE | 2018-10-23 03:47 | NUR ---
Assumed care of pt at 1900. Patient alert and oriented to self only. Colostomy in place. PPN infusing. Able to follow commands. Fall precautions in place. Will continue to monitor.
[2018-10-23 04:08] VITALS: BP 141/86
[2018-10-23 07:20] VITALS: BP 129/73
--- NOTE | 2018-10-23 08:31 | NUR ---
ASSESMENT COMPLETED. VSS. SLEEPY. AROUSES WITH VERBAL STIMULI. NO NOTED SOA. NO NV. PT RESTING IN BED APPEARS COMFORTABLE. FALL PREC, INTACT. WILL CONT. TO MONITOR.
[2018-10-23 08:52] LABS: CALCIUM 9.2 mg/dL (8.5-10.1)
[2018-10-23 08:57] LABS: ABSOLUTE NEUTROPHILS 4.3 thou/uL (1.4-8.2); BASOPHILS 0.6 % (0.0-2.0); EOSINOPHILS 2.8 % (0.0-3.0); HEMATOCRIT 37.2 % (37.0-47.0); LYMPHOCYTES 7.3 % (24.0-44.0); MCH 31.2 pg (26.0-34.0); MCHC 33.7 g/dL (28.0-37.0); MCV 92.5 fL (80.0-100.0); MONOCYTES 11.1 % (1.0-8.0); PLATELET COUNT 201 thou/uL (150-400); POLYS 78.2 % (36.0-66.0); RBC 4.02 mil/uL (4.20-5.00); WBC 5.5 thou/uL (4.0-11.0)
[2018-10-23 08:58] LABS: HEMOGLOBIN 12.5 gm/dL (12.0-15.0)
--- NOTE | 2018-10-23 16:18 | NUR ---
MINIMAL OUTPUT NOTED ON COLOSTOMY. PT RESTING IN BED AT THIS TIME. BED ALARM ON. WILL CONT. TO MONITOR.
[2018-10-23 16:59] VITALS: BP 133/68
--- NOTE | 2018-10-23 17:05 | NUR ---
[facility] FAXED NURSES NOTES REQUESTED BY ADM. CHEPE AT . SPOKE WITH CHEPE AND SHE RECEIVED NOTES.
[2018-10-23 20:21] VITALS: BP 1135/69
[2018-10-24 04:05] VITALS: BP 152/79
--- NOTE | 2018-10-24 04:11 | NUR ---
ASSUMED PT CARE 190. PT CONFUSED. VSS. PT CALLS OUT "HELP ME" WHEN NEEDING TO USE THE RESTROOM". PT DENIES N/V, AND PAIN AT THIS TIME. REASSESSMENT COMPLETE. PT TOLERATED CLEAR LIQUID DIET WELL THROUGH EVENING. WILL CONTINUE POC UNTIL EOS.
[2018-10-24 08:33] VITALS: BP 127/60
[2018-10-24] MEDS ORDERED: COLACE 100 MG100 MG PO (09:43)
--- NOTE | 2018-10-24 16:30 | NUR ---
Assumed pt care at 7am.Assessment completed.vss.Pt tolerated soft diet at lunch.PPN infusing as ordered.Leonila supervisor fireworks assembly here and dc order noted.Cse talent acquisition program manager arranged for transport and pt son notified.Piv dc'd prior to pt dc to lorraine kramer at 1620 after report given to Dede shrestha.
== END 2018-10-24 16:26 | DRG 389 ==
LOC: ER 15:34 → EROBS 18:30 → 4E 18:30
PROVIDERS: Nurse Practitioner Adult Health; Student in an Organized Health Care Education/Training Program; ADMIT Internal Medicine
PROC: 0D9670Z Drainage of Stomach with Drainage Device, Via Natural or Artificial Opening (ICD-10-PCS; principal; 2018-10-24)
DX: K56.609 Unspecified intestinal obstruction, unspecified as to partial versus complete obstruction (principal); N17.9 Acute kidney failure, unspecified; E87.1 Hypo-osmolality and hyponatremia; K21.9 Gastro-esophageal reflux disease without esophagitis; E78.5 Hyperlipidemia, unspecified; F03.90 Unspecified dementia, unspecified severity, without behavioral disturbance, psychotic disturbance, mood disturbance, and anxiety; Z96.642 Presence of left artificial hip joint; E03.9 Hypothyroidism, unspecified; E87.5 Hyperkalemia; Z79.899 Other long term (current) drug therapy; Z85.038 Personal history of other malignant neoplasm of large intestine; Z93.3 Colostomy status; Z88.2 Allergy status to sulfonamides; Z88.8 Allergy status to other drugs, medicaments and biological substances
CPT/HCPCS: 10084

== ENCOUNTER 2018-11-08 13:37 | Inpatient (IN) | payer OTHER ==
[~2018-11-08] VITALS: Ht 160 cm; Wt 64.0 kg
[~2018-11-08 13:37] MED LIST changes: +COLACE 100 MG100 MG PO
[2018-11-08 13:39] VITALS: BP 177/90
[2018-11-08 14:22] LABS: ABSOLUTE NEUTROPHILS 5.5 thou/uL (1.4-8.2); BASOPHILS 0.8 % (0.0-2.0); HEMATOCRIT 36.8 % (37.0-47.0); HEMOGLOBIN 12.4 gm/dL (12.0-15.0); LYMPHOCYTES 6.1 % (24.0-44.0); MCH 31.7 pg (26.0-34.0); MCHC 33.8 g/dL (28.0-37.0); MCV 93.8 fL (80.0-100.0); MONOCYTES 6.1 % (1.0-8.0); PLATELET COUNT 273 thou/uL (150-400); RBC 3.93 mil/uL (4.20-5.00); RDW 14.5 % (10.5-14.5); WBC 6.6 thou/uL (4.0-11.0)
[2018-11-08 14:40] LABS: ANION GAP 10 mmol/L (7-16); BUN 19 mg/dL (7-18); CALCIUM 9.9 mg/dL (8.5-10.1); CHLORIDE 101 mmol/L (98-107); CO2 26 mmol/L (21-32); CREATININE 1.1 mg/dL (0.6-1.0); GLUCOSE 122 mg/dL (74-106); POTASSIUM 4.5 mmol/L (3.5-5.1); SODIUM 137 mmol/L (136-145)
[2018-11-08 14:48] LABS: ALBUMIN 3.5 g/dL (3.4-5.0); LIPASE 415 U/L (73-393); SGOT 24 U/L (15-37); SGPT 18 U/L (30-65); TOTAL BILIRUBIN 0.2 mg/dL (<0.1-1.0); TOTAL PROTEIN 7.5 g/dL (6.4-8.2); TROPONIN-I <0.06 ng/mL (<0.06)
[2018-11-08 17:57] LABS: URINE BILIRUBIN NEGATIVE (Negative); URINE BLOOD NEGATIVE (Negative); URINE CLARITY CLEAR; URINE COLOR YELLOW; URINE GLUCOSE-RANDOM* NEGATIVE (Negative); URINE KETONES TRACE (Negative); URINE LEUKOCYTES-REFLEX NEGATIVE (Negative); URINE NITRITE-REFLEX NEGATIVE (Negative); URINE PROTEIN (DIPSTICK) TRACE (Negative); URINE SPECIFIC GRAVITY 1.025 (1.005-1.035); URINE UROBILINOGEN 0.2 E.U./dl (0.2-1.0)
[2018-11-08 18:52] LABS: ALBUMIN 3.5 g/dL (3.4-5.0); TOTAL PROTEIN 7.6 g/dL (6.4-8.2)
--- NOTE | 2018-11-08 19:02 | NUR ---
PT WAS IRRITABLE AND THREATENING TO PULL OUT HER NG TUBE BECAUSE "I DONT LIKE THIS IN MY NOSE". RN TRYS TO EXPLAIN THE BENEFITS OF THE NG TUBE WITH HER DIAGNOSIS OF SBO.
[2018-11-08 19:03] VITALS: BP 173/89
[2018-11-08 19:22] LABS: TSH 20.64 uIU/mL (0.358-3.740)
--- NOTE | 2018-11-08 19:22 | NUR ---
ADVANCED NG TUBE TO 55CM. PT TOLERATED FAIRLY. PT STATES THAT IT FEELS LIKE SHE IS CHOKING WITH THE TUBE IN THE BACK OF HER THROAT. EXPLAINED THE REASON FOR THE TUBE AND WHY SHE FEELS LIKE THAT. PT WAS RESTING WITH EYES CLOSED WHEN NURSE LEFT THE ROOM.
[2018-11-08 20:07] VITALS: BP 128/64; BP 168/64
[2018-11-08 20:19] VITALS: BP 184/97
[2018-11-08] MEDS ORDERED: REMERON15 MG PO (20:36)
[2018-11-08] MEDS ORDERED: ACETAMINOPHEN325 MG PO (20:37)
[2018-11-08] MEDS ORDERED: CLONIDINE0.1 PO (20:40)
[2018-11-09 04:26] VITALS: BP 150/89
[2018-11-09 05:24] LABS: HEMATOCRIT 33.2 % (37.0-47.0); HEMOGLOBIN 11.1 gm/dL (12.0-15.0); MCH 31.7 pg (26.0-34.0); MCHC 33.6 g/dL (28.0-37.0); MCV 94.4 fL (80.0-100.0); RBC 3.51 mil/uL (4.20-5.00); RDW 14.5 % (10.5-14.5); WBC 5.5 thou/uL (4.0-11.0)
[2018-11-09 05:37] LABS: CALCIUM 9.1 mg/dL (8.5-10.1); CREATININE 1.2 mg/dL (0.6-1.0); MAGNESIUM 1.8 mg/dL (1.8-2.4); POTASSIUM 4.3 mmol/L (3.5-5.1)
[2018-11-09 07:30] VITALS: BP 137/78
--- NOTE | 2018-11-09 07:49 | NUR ---
Pt came to unit from ED approx 1999. Pt has hx of dementia and has periods of confusion. NG tube in place when pt got up to unit. Pt educated on the importance of the NG tube. After walking out of the room pt pulled NG tube out. Per ED rn, pt had been threatening to pull the tube out in ED as well. Pt non-compliant with education. FACTORY MAINTENANCE MANAGER on duty notified and order for Haldol obtained. Order for soft wrist restraints obtained as well. NG tube was reinserted and restraints put in place. 1500 cc out of the BG tube overnight. Pt blood pressure 184/97 when she came up to unit. FACTORY MAINTENANCE MANAGER on duty notified and new orders noted. Pt son notified about pt status and restraint application. Report given to am nurse.
--- NOTE | 2018-11-09 08:42 | NUR ---
ASSESMENT COMPLETED. VSS. CONFUSED/IRRITABLE. PT YELLING FOR WATER/COFFEE AND WANTING TO GET OFF RESTRAINTS. UNABLE TO REDIRECT PT THIS AM. NG TO LIS. REPOSITIONED FOR COMFORT. WILL CONT. TO MONITOR.
--- NOTE | 2018-11-09 13:17 | NUR ---
PT VERY AGITATED THIS AFTERNOON. WANTING TO EAT/DRINK. PT CUSSING AT STAFF. PT MORE AWARE OF NG TUBE THIS AFTERNOON- ON RELEASING RESTRAINTS FOR ROM PT ATTEMPTS TO REMOVE NG AND BECAME AGRESSIVE WITH THIS RN. RESTRAINTS REAPPLIED. NG RETAPED/SECURED. ENEMA GIVEN- ENEMA OUTPUT WITH SEDIMENTS. ABLE TO REMOVE HARD STOOL FROM OSTOMY. APPLIANCE RETAPED. WILL CONT. TO MONITOR.
--- NOTE | 2018-11-09 13:37 | NUR ---
PT OBSERVED TO BE SITTING IN BED REACHING THROUGH HANDS AND REMOVING TAPE OFF NOSE WHILE ON RESTRAINTS. CONTINUES TO YELL FOR FOOD/WATER. UNABLE TO REDIRECT PT TO LAY DOWN. PT ATTEMPTING TO HIT STAFF WHILE BEING ASSISTED TO FOWLERS. PT PULLING ON ARMS WHILE ON RESTRAINTS. HALDOL GIVEN TO AID FOR PT SAFETY. NG RETAPED. SIDERAILS PADDED FOR SAFETY.
[2018-11-09 16:26] VITALS: BP 184/94
[2018-11-10 00:48] VITALS: BP 188/105
--- NOTE | 2018-11-10 01:33 | NUR ---
ASSUMED PT CARE 1899. PT ALERT, CONFUSED, FORGETFUL. REASSESSMENT COMPLETED. VSS. BP ELEVATED, SEE EMAR. NG TO R NARE IN PLACE- MINIMAL OUTPUT. IV DRESSING C/D/I, NO SIGNS OF INFITLRATION. FREQUENT ROUNDING. WILL CONTINUE POC UNTIL EOS.
[2018-11-10 04:37] VITALS: BP 149/102
[2018-11-10 05:58] LABS: HEMATOCRIT 29.7 % (37.0-47.0); HEMOGLOBIN 9.9 gm/dL (12.0-15.0); MCH 31.6 pg (26.0-34.0); MCHC 33.4 g/dL (28.0-37.0); MCV 94.7 fL (80.0-100.0); RBC 3.14 mil/uL (4.20-5.00); RDW 14.6 % (10.5-14.5); WBC 3.3 thou/uL (4.0-11.0)
[2018-11-10 06:11] LABS: CALCIUM 8.5 mg/dL (8.5-10.1); CREATININE 0.8 mg/dL (0.6-1.0); MAGNESIUM 1.8 mg/dL (1.8-2.4); POTASSIUM 3.5 mmol/L (3.5-5.1)
[2018-11-10 07:20] VITALS: BP 152/80
--- NOTE | 2018-11-10 09:30 | NUR ---
ASSUMED CARE OF PT AT 0700. ASSESSMENT COMPLETED. ALERT TO SELF, PLACE, AND SITUATION. FORGETFUL AND SHORT TERM MEMORY NOTED. NGT IN PLACE RIGHT NARE, LIS, MINIMAL CLEAR OUTPUT WITH SEDIMENT. PT IN TWO POINT SOFT WRIST RESTRAINTS DUE TO TRYING TO PULL OUT TUBES. SKIN INTACT. ROOM AIR. DENIES PAIN, N/V/D. UP TO BEDSIDE COMMODE WITH X1 ASSIST. PT IMPULSIVE AT TIMES. FALL RISK PRECAUTIONS IN PLACE. WILL CONTINUE TO MONITOR.
--- NOTE | 2018-11-10 12:00 | NUR ---
PT NOT EXHIBITING BEHAVIOR PULLING OUT TUBES. SOFT WRIST RESTRAINTS REMOVED AND ORDER COMPLETED. PT RESTING IN BED AND MAKES NEEDS KNOWN.
--- NOTE | 2018-11-10 13:18 | EKG ---
[address] [place] [address] ELECTROCARDIOGRAM REPORT Name: JESSE BESS Room #: 420-P ADM IN M.R.#: [id number] ������������������ Admission: 11/08/18 ������������������ Attend Phys: Franklyn Fuentes MD Discharge: ������������������ Date of : 44 Report #: [id number] ����������������������������������������������������������������� [id number] THIS REPORT FOR: //name// [facility] ED Test Date: 2018-11-08 Test Time: 13:52:10 Pat Name: JESSE BESS Department: Room: [facility] Gender: F Aircraft Ordnance Technician: YESENIA : 1940 Requested By: Micaela Bruce Order Number: [id number] MD: Markos Garcia Measurements Intervals [place] Rate: 70 P: 6 GA: 202 QRS: -44 QRSD: 88 T: 101 QT: 382 QTc: 413 Interpretive Statements Sinus rhythm Leftward axis Inferior infarct, old Anteroseptal infarct, age indeterminate LVH with repolarization abnormality Compared to ECG 10/16/2018 16:57:10 Inferior Q waves are more prominent Electronically Signed On 11-10-2018 13:18:28 CDT by Markos Garcia [email or web address] ��������������������������������������������� <ELECTRONICALLY SIGNED> ���������������������������������������� By: Markos Garcia MD, [facility] ��������������������������������������������� 11/10/18 1318 1352 1352 Markos Garcia MD, [facility] /EPI
[2018-11-10 19:38] VITALS: BP 156/81
--- NOTE | 2018-11-11 01:18 | NUR ---
ASSUMED CARE AT 1900, ASSESSMENT COMPLETED. PT CONFUSED, KEPT ASKING NURSE'S NAME REPEATEDLY AND GIVING HER OWN WELL, THINKS SHE IS IN A HOTEL AND DOESN'T REMEMBER HER FAMILY KNOWS SHE IS HERE. DENIES PAIN, NAUSEA, OR SOB. ACTIVE BOWEL SOUNDS, VERY SMALL AMOUNT OF HARD STOOL NOTED IN COLOSTOMY. PT IS UP EVERY 20-30 MINUTES TO USE THE BATHROOM, GOING ABOUT 100-200 ML AT THE MOST; PRE-VOID BLADDER SCAN SHOWED ABOUT 240ml, AND POST-VOID WAS 70ml. OBTAINED ORDER TO STOP IV FLUIDS. GAVE DOSE OF MIRTAZIPINE AT 2200, BUT HAS NOT HELPED PT SLEEP LONGER PERIODS OF TIME. NO OTHER CONCERNS, WILL CONTINUE TO MONITOR.
[2018-11-11 08:02] VITALS: BP 168/97
[2018-11-11 08:42] LABS: HEMATOCRIT 31.5 % (37.0-47.0); HEMOGLOBIN 10.6 gm/dL (12.0-15.0); MCH 31.3 pg (26.0-34.0); MCHC 33.6 g/dL (28.0-37.0); MCV 93.2 fL (80.0-100.0); RBC 3.38 mil/uL (4.20-5.00); RDW 14.3 % (10.5-14.5); WBC 3.3 thou/uL (4.0-11.0)
[2018-11-11 08:52] LABS: CREATININE 0.8 mg/dL (0.6-1.0); MAGNESIUM 1.7 mg/dL (1.8-2.4); POTASSIUM 3.4 mmol/L (3.5-5.1)
--- NOTE | 2018-11-11 09:38 | NUR ---
ASSUMED CARE OF PT AT 0700. ASSESSMENT COMPLETED. ALERT TO PERSON, PLACE, AND SITUATION. DENIES PAIN. DENIES N/V/D. ELEVATED BP - 168/97, HYDRALAZINE GIVEN ORDERED. PHYSICIAN NOTIFIED. NEW ORDER FOR LISINOPRIL, GIVEN ORDERED. ROOM AIR. NO SOA OR CHEST PAIN. SKIN INTACT. BILATERAL UPPER EXTREMITY EDEMA NOTED DUE TO IV INFILTRATION. UP WITH X1 ASSIST. TOLERATING CLEARS DIET. WILL CONTINUE TO MONITOR.
[2018-11-11 16:05] VITALS: BP 146/73
--- NOTE | 2018-11-11 17:17 | NUR ---
ASSESSMENT-PT KNOWN TO ME FROM LAST ADMISSION IN OCTOBER WHEN SHE WENT TO [facility]. PT WAS DISCHARGED HOME FROM [facility] [place] LAST SUNDAY & SON SAYS SHE WAS ONLY HOME 1 HR THEN STARTED VOMITING & HE CALLED EMS & HAD HER BROUGHT TO HOSPITAL AGAIN. SON ASKING ABOUT WHAT DIET PT WAS DISCHARGED ON & THIS INFORMATION WAS LOOKED UP & NOTED TO BE A SOFT DIET. HE SAYS PT WAS BEING FED REGULAR FOOD AT [facility] AND HE THINKS THIS IS WHAT CAUSED HER BOWEL ISSUE AGAIN. S/W SARAH IN ADMISSIONS AT [facility] AND BRIDGER GARCIA HAD PT ON A PEGGY REGULAR DIET. SON VERY ACCUSATORY ON THE PHONE. PRIOR PT HAD BEEN LIVING AT HOME WITH THE SON RYDER BEING HER PRIMARY CAREGIVER. DTR ALSO LIVES THERE BUT WORKS NIGHTS. SON DOES ALL OF THE HOUSEHOLD THINGS AND PAYS THE BILLS, FOLLOWING TO ASSIST WITH DC PLANNING.
[2018-11-11 19:35] VITALS: BP 125/38
--- NOTE | 2018-11-12 05:27 | NUR ---
ASSUMED CARE AT 1900, ASSESSMENT COMPLETED. PT INITIALLY ASLEEP, BUT WOKE UP AND WAS IMPULSIVE, CUSSING AT STAFF, AND RESISTING HELP TO TOILET. DID NOT UNDERSTAND SAFETY MEASURES, YELLED THAT SHE WAS "IN A [facility]," AND WOULD NOT REDIRECT. 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 WOKE UP AGAIN AROUND 0200, YELLING AT STAFF AND NOT REDIRECTABLE; KEPT TRYING TO PULL OUT HER IV, DID NOT UNDERSTAND WHAT IT WAS USED FOR, CUSSING AT STAFF. GAVE DOSE OF HALDOL, BACK ASLEEP NOW. NO OTHER CONCERNS, WILL CONTINUE TO MONITOR.
[2018-11-12 05:35] LABS: HEMATOCRIT 29.4 % (37.0-47.0); HEMOGLOBIN 9.9 gm/dL (12.0-15.0); MCH 31.9 pg (26.0-34.0); MCHC 33.8 g/dL (28.0-37.0); MCV 94.5 fL (80.0-100.0); RBC 3.11 mil/uL (4.20-5.00); RDW 14.1 % (10.5-14.5); WBC 2.8 thou/uL (4.0-11.0)
[2018-11-12 05:46] LABS: CALCIUM 8.4 mg/dL (8.5-10.1)
[2018-11-12 05:47] LABS: POTASSIUM 4.7 mmol/L (3.5-5.1)
[2018-11-12 07:30] VITALS: BP 127/78
--- NOTE | 2018-11-12 09:37 | NUR ---
ASSUMED CARE AT 0700, SHIFT ASSESSMENT DONE, MEDS GIVEN, VSS. DENIES ANY PAIN, NAUSEA. WANTS TO EAT SOLID FOOD, DOES NOT LIKE FULL LIQUID DIET, DR LORENZO INDICATED CAN B3E ADVANCED TO SOFT DIET. WILL CONTINUE TO ASSESS AND ASSIST WITH ADLs NEEDED.
[2018-11-12 16:30] VITALS: BP 150/98
[2018-11-12 16:40] VITALS: BP 127/55
[2018-11-12 20:30] VITALS: BP 148/80
[2018-11-13 05:26] VITALS: BP 119/66
--- NOTE | 2018-11-13 05:50 | NUR ---
ASSUMED CARE AT 1900, ASSESSMENT COMPLETED. PER DAY SHIFT, PT'S COLOSTOMY HAD TO BE CHANGED TWICE POSSIBLY FROM HER PULLING AT IT CAUSING IT TO LEAK; AT SHIFT CHANGE APPLIANCE WAS INTACT, WITH MODERATE AMOUNT OF SOFT STOOL PRESENT. BY ABOUT 2014, PT WAS SITTING UP IN BED SAYING SHE WAS WET AND THE ENTIRE APPLIANCE WAS OFF. PLACED A NEW TWO-PIECE OSTOMY APPLIANCE WITH CIRCULAR WAIFER; STOMA IS ALMOST FLUSH WITH SKIN, AND SURROUNDING AREA IS INTACT BUT SLIGHTLY RED. MINIMAL STOOL OUT THE REST OF THE NIGHT. EARLY IN SHIFT PT WAS VERY CONFUSED AND DROWSY BUT PLEASANT AND REDIRECTABLE. AFTER SHE WOKE UP TO USE BATHROOM AROUND 0200, SHE HAS BEEN IRRITABLE AND IMPULSIVE, CUSSING AT STAFF, AND DIFFICULT TO REDIRECT. HAS BEEN GIVEN A SNACK TWICE THIS AM. NO OTHER CONCERNS, WILL CONTINUE TO MONITOR.
[2018-11-13 07:40] VITALS: BP 133/73
[2018-11-13 16:00] VITALS: BP 154/99
--- NOTE | 2018-11-13 17:30 | NUR ---
Followup call made to pt's son to discuss dc planning needs and recommendations for 24hr care/therapy for the pt. Pt's son was angry about the pt's readmission and expressed his concerns that the pt had been given a regular diet at the SNF vs a soft as ordered at dc. Encouragement given for him to discuss with the administration at the facility. He became louder and stated that advertising copywriter was a socialworker and why was I not taking care of that for him. CM role introduced. Cage Unloader offered him the [place] hotline number and well as the pt rep for [facility]. He notes he had spoken to the surgeon but that did not address the problem as noted above. Cage Unloader offered to leave a message with the [facility] liason regarding his concerns. Message left with Renee in admissions. Cage Unloader attempted several times to refocusing him on current dc planning efforts. He does not want penitentiary placement. He is the primary caregiver for his mom and "will not do that to her". He is receptive to HH referral at [place] but does not want [facility] or [facility]. He denies a preference other than not wanting either of them. He reports that [facility] hotlined him for smoking and " being drunk". He notes that his sister lives in the [facility] as well. He feels at this point his mom will get better care at home than in a SNF and she does not have any secondary ins for the copay days. He can not complete her medicaid application as he stated her ID was lost here during a previous visit. Cage Unloader attempted to offer support and options;however he continued to be argumentative. Supportive listening provided. He was advised that the pt was likely dc ready tomorrow and we could arrange hh f/u. Care team updated. Will follow.
--- NOTE | 2018-11-13 18:30 | NUR ---
PT ASSESSED THIS AM. PT CONFUSED AND FORGETFUL W/ SOME IMULSIVENESS. RESTLESS WANTING TO WALK FREQUENTLY. FALL PREVENTIONS IN PLACE. PT EATING AND DRINKING WELL. DR. MEJIAS IN AND WANTING PT TO STAY ON LOW FIBER DIET W/ DAILY MIRALAX. NO STOOL THIS SHIFT. CONTINENT OF URINE.
[2018-11-13 20:06] VITALS: BP 139/77
--- NOTE | 2018-11-14 04:20 | NUR ---
Assumed care of pt at 1900. Pt trying to get out of bed during shift. 1 dose of haldol administered for pt to calm down and rest for the night. Colostomy bag in place. SBA to the restroom. No c/o pain. Fall precautions in place. Will continue to monitor.
[2018-11-14 04:45] VITALS: BP 140/64
[2018-11-14 07:56] VITALS: BP 151/87
--- NOTE | 2018-11-14 10:02 | NUR ---
ASSUMED CARE OF PT AROUND 0715, ANXIOUS, RESTLESS, HELPED HER W/VERY CLOSE SBA TO RESTROOM, CONTINENT AT THIS TIME, UNSTEADY, ALARMS ON. WILL CONTINUE TO ASSESS, MANY STAFF ARE CALLED UPON WHEN THIS NURSE IS IN OTHER ROOMS D/T HER CALLING OUT. ENCOURAGED HER TO USE CALL LIGHT AND SHOW HER HOW TO USE, SHE DOES RETURN DEMO THEN WILL YELL OUT LATER. WILL CONTINUE TO MONITOR
--- NOTE | 2018-11-14 13:25 | NUR ---
[facility]ED [facility]ERRAL TO [facility] SPOKE WITH ADM. [facility] AND THEY WILL NOT BE ABLE TO ACCEPT PT. AT DISCHARGE. PT. WOULD HAVE TO PAY HALF OF THE HH COST. [facility] TO [facility] SPOKE WITH JENNIFER IN ADM. SHE RECEIVED REFERRAL AND WILL REVIEW. PT'S PCP IS DR. CORI JORDAN. DCP TO FOLLOW.
--- NOTE | 2018-11-14 13:29 | NUR ---
FAXED REFERRAL TO [facility] SPOKE WITH HEIKE IN ADM. SHE RECEIVED REFERRAL AND WILL BE ABLE TO ACCEPT AT DISCHARGE. PT'S PCP IS DR. CORI JORDAN. POSS. DC TODAY OR TOMORROW. DCP TO FOLLOW.
--- NOTE | 2018-11-14 14:32 | NUR ---
Received consult regarding pts son request for diet for home. Able to call son Pedro and discuss appropriate foods to choose and limit for low fiber/soft diet. Son satisfied with information provided. Education materials with RD name/number will be sent home with pt's hospital paperwork.
[2018-11-14 16:12] VITALS: BP 131/36
[2018-11-14 19:16] VITALS: BP 127/67
--- NOTE | 2018-11-15 01:09 | NUR ---
PT ALERT BUT PLEASANTLY CONFUSED.ATTEMPTED TO GET OOB WITHOUT ASSIST,WAS EASILY REDIRECTED.UP WITH ASSIST X1 TO BR.COLOSTOMY IN PLACEMWITH MIN OUTPUT,MIRALAX GIVEN ORDERED.SNACKS PROVIDED BEFORE PT RETIRED FOR THE NIGHT.PT RESTING ON HER BED AT THIS TIME.FALL PRECAUTIONS IN PLACE,CALL LIGHT WITHIN REACH.
[2018-11-15 03:42] VITALS: BP 140/60
[2018-11-15 04:46] LABS: HEMOGLOBIN 10.8 gm/dL (12.0-15.0); MCH 31.6 pg (26.0-34.0); MCHC 32.9 g/dL (28.0-37.0); MCV 96.3 fL (80.0-100.0); RBC 3.42 mil/uL (4.20-5.00); RDW 14.7 % (10.5-14.5); WBC 2.8 thou/uL (4.0-11.0)
[2018-11-15 05:06] LABS: CALCIUM 9.1 mg/dL (8.5-10.1); CREATININE 1.1 mg/dL (0.6-1.0); POTASSIUM 4.2 mmol/L (3.5-5.1)
[2018-11-15 08:15] VITALS: BP 136/72
--- NOTE | 2018-11-15 09:41 | NUR ---
PT A&OX1, CALM THOUGH IMPULSIVE TRIES TO GET UP W/O ASSIST. IV INTACT IN L FA, COLOST INTACT. TOLERATING PO WELL HAS ERGENCY WITH BLADDER. PLACED PT IN CHAIR ALARM IS CHEMISTRY PROFESSOR LIGHT W/I REACH. WILL CONT TO MONITOR.
[2018-11-15] MEDS ORDERED: MIRALAX17 GM PO (14:00)
[2018-11-15 14:10] VITALS: BP 136/72
--- NOTE | 2018-11-15 14:38 | NUR ---
PT. DISCHARGING TODAY TO HOME WITH [facility] FAXED DC ORDERS/SUMMARY TO [facility] AND SPOKE WITH JC IN ADM. SHE RECEIVED DC ORDERS. DCP ARRANGED TRANSPORT VIA [email or web address] [facility] AT [phone] TODAY DUE TO SON DOES NOT HAVE A CAR. UNIT NOTIFIED OF TRANSPORT TIME. .
--- NOTE | 2018-11-15 16:14 | NUR ---
DC ORDERS RECEIVED. IV REMOVED FROM L FA, MORE OUTPUT NOTED IN COLOSTOMY. DC INSTRUCTINS REVIEWED WITH PT AND SON RYDER OVER THE PHONE. W/C JOSIAH PICKED UP PT UP AT 1600.
== END 2018-11-15 16:28 | disposition home health service (06) | DRG 388 ==
LOC: ER 13:37 → EROBS 18:20 → 4E 18:20
PROVIDERS: Hospitalist; Physician Assistant; ADMIT Internal Medicine
PROC: 0D9670Z Drainage of Stomach with Drainage Device, Via Natural or Artificial Opening (ICD-10-PCS; principal; 2018-11-08)
DX: K56.609 Unspecified intestinal obstruction, unspecified as to partial versus complete obstruction (principal); G93.41 Metabolic encephalopathy; N17.9 Acute kidney failure, unspecified; G93.40 Encephalopathy, unspecified; E78.5 Hyperlipidemia, unspecified; E03.9 Hypothyroidism, unspecified; F03.90 Unspecified dementia, unspecified severity, without behavioral disturbance, psychotic disturbance, mood disturbance, and anxiety; Z96.642 Presence of left artificial hip joint; K75.9 Inflammatory liver disease, unspecified; I10 Essential (primary) hypertension; M62.84 Sarcopenia; E83.42 Hypomagnesemia; E87.6 Hypokalemia; Z85.038 Personal history of other malignant neoplasm of large intestine; Z87.81 Personal history of (healed) traumatic fracture; Z88.2 Allergy status to sulfonamides; Z88.8 Allergy status to other drugs, medicaments and biological substances; Z93.3 Colostomy status
CPT/HCPCS: 10084

== ENCOUNTER 2019-03-21 22:48 | Inpatient (IN) | payer OTHER ==
[~2019-03-21] VITALS: Ht 157.5 cm; Wt 65.9 kg
[~2019-03-21 22:48] MED LIST changes: +ACETAMINOPHEN325 MG PO; +CLONIDINE0.1 PO; +REMERON15 MG PO
[2019-03-21 22:52] VITALS: BP 112/65
[2019-03-21 23:06] LABS: ABSOLUTE NEUTROPHILS 7.8 thou/uL (1.4-8.2); BASOPHILS 0.3 % (0.0-2.0); EOSINOPHILS 0.9 % (0.0-3.0); HEMATOCRIT 35.8 % (37.0-47.0); HEMOGLOBIN 11.9 gm/dL (12.0-15.0); LYMPHOCYTES 4.5 % (24.0-44.0); MCH 30.6 pg (26.0-34.0); MCHC 33.2 g/dL (28.0-37.0); MCV 92.1 fL (80.0-100.0); MONOCYTES 6.4 % (1.0-8.0); PLATELET COUNT 261 thou/uL (150-400); POLYS 87.9 % (36.0-66.0); RBC 3.88 mil/uL (4.20-5.00); RDW 13.3 % (10.5-14.5); WBC 8.9 thou/uL (4.0-11.0)
[2019-03-21] MEDS ORDERED: PLAVIX 75 MG TA75 M1 PO (23:07)
[2019-03-21] MEDS ORDERED: NORVASC2.5 MG PO (23:08)
[2019-03-21] MEDS ORDERED: LIPITOR40 MG PO (23:08)
[2019-03-21] MEDS ORDERED: COLACE100 MG PO (23:08)
[2019-03-21] MEDS ORDERED: SENNA8.6 MG PO (23:09)
[2019-03-21 23:13] LABS: CREATININE 1.1 mg/dL (0.6-1.0); POTASSIUM 4.2 mmol/L (3.5-5.1)
--- NOTE | 2019-03-21 23:16 | NUR ---
SON CALLED AND STATED THAT HE SAID HE HAD HER SENT BECAUSE SHE HAS BEEN COMPLAINING OF A HEADACHE AND STOMACH PAIN, WHICH USUALLY TURNS INTO A SMALL BOWEL OBSTRUCTION IF LEFT UNATTENDED TO. SON STATES THAT SHE HAS HAD SOME DECREASE IN HER OUTPUT VIA OSTOMY. STATES THE CONSISTENCY HAS CHANGED (BECAUSE SHE ATE A BLT SANDWICH) RYDER BESS [phone] (DPOA)
[2019-03-21 23:19] LABS: TOTAL BILIRUBIN 0.2 mg/dL (<0.1-1.0); TOTAL PROTEIN 7.2 g/dL (6.4-8.2)
--- NOTE | 2019-03-21 23:30 | NUR ---
PATIENT TO CT SCAN AT THIS TIME
[2019-03-21 23:32] LABS: ALBUMIN 3.3 g/dL (3.4-5.0)
--- NOTE | 2019-03-22 00:05 | NUR ---
PATIENT'S TWO PIECE CLOSED APPLIANCE BEGAN TO LEAK IT WAS FULL WHEN PATIENT WAS IN CT SCAN. STOOL POOLING INTO HER CLOTHES. PATIENT CLEANED. BEDDING CHANGED. APPLIANCE CHANGED TO ONE PIECE APPLIANCE THAT CAN BE EMPTIED AND HAS BEEN EMPTIED. LARGE AMOUNTS OF BROWN LIQUID STOOL. PATIENT'S DEMEANOR HAS BECOME MORE AGGRESSIVE AND LANGUAGE HAS BEEN VULGAR SINCE APPLIANCE HAD TO BE CHANGED. PATIENT NEEDING CONTINUOUS REDIRECTION. SOILED CLOTHES PLACED IN PATIENT BAG. PATIENT VERY UPSET REGARDING HER SOILED CLOTHES.
--- NOTE | 2019-03-22 01:37 | NUR ---
THIS RN SPOKE WITH SONRYDER TO INFORM HIM OF PATIENT'S ADMISSION STATUS
[2019-03-22 01:38] VITALS: BP 112/65
--- NOTE | 2019-03-22 01:45 | NUR ---
REPORT TO ADARSH MANZO
[2019-03-22 02:00] VITALS: BP 153/95
[2019-03-22 02:09] VITALS: BP 165/105
--- NOTE | 2019-03-22 03:58 | NUR ---
PATIENT ARRIVED ON UNIT AT 0200 VIA CART ACCOMPAINIED BY YULI MCCARTHY. PATIENT VERY AGITATED AND CROSS. C/O BEING COLD AND THEN THAT THE COVERS WERE TOO HEAVY. C/O NAUSEA, HAD SOME DRY HEAVES BUT NO EMESIS. MED GIVEN. C/O PAIN IN ABD, BACK AND HEAD. PATIENT ABLE TO ANSWER ALL QUESTIONS APPROPRIATELY. ABLE TO GET UP WITH STAND-BY ASSIST. REFUSED AN NG TO BE PLACED. EXPLAINED WHY IT WAS NECESSARY. COLOSTOMY ON L LOWER ABD. BROWN LIQUID STOOL PRESENT.
[2019-03-22 06:11] LABS: HEMATOCRIT 35.7 % (37.0-47.0); MCH 30.8 pg (26.0-34.0); MCHC 33.6 g/dL (28.0-37.0); MCV 91.4 fL (80.0-100.0); RBC 3.9 mil/uL (4.20-5.00); RDW 13.4 % (10.5-14.5); WBC 6.5 thou/uL (4.0-11.0)
[2019-03-22 06:31] LABS: CALCIUM 9.1 mg/dL (8.5-10.1); CREATININE 1.1 mg/dL (0.6-1.0); POTASSIUM 4.9 mmol/L (3.5-5.1)
[2019-03-22 07:26] VITALS: BP 106/65
[2019-03-22 16:00] VITALS: BP 152/66
--- NOTE | 2019-03-22 16:58 | NUR ---
PT ASSESSED AT START OF SHIFT. HAS LIQUID BROWN STOOL IN COLOSTOMY-AFTER LARGE BLOWOUT IN THE ER. SLEPT MUCH THIS AM AND THIS AFTERNOON VERY ALERT AND FEELING HUNGRY. STARTED ON CLEARS AND NO MORE NAUSEA. AMBULATES W/ STANDBY AnD DID WELL.
[2019-03-22 20:15] VITALS: BP 178/84
--- NOTE | 2019-03-23 01:59 | NUR ---
PT AMBULATING TO BATHROOM WITH STANDBY ASSIST AND IS TOLERATING FAIR. DENIES PAIN. DENIES NAUSEA. REMAINS IMPULSIVE. RESTING COMFORTABLY. NO NEEDS VOICED. CALL LIGHT WITHIN REACH. WILL CONTINUE TO PROVIDE FREQUENT OBSERVATION.
[2019-03-23 07:22] LABS: HEMATOCRIT 32.3 % (37.0-47.0); HEMOGLOBIN 10.6 gm/dL (12.0-15.0); MCH 30.5 pg (26.0-34.0); MCV 92.4 fL (80.0-100.0); RBC 3.49 mil/uL (4.20-5.00); RDW 13.6 % (10.5-14.5); WBC 3.1 thou/uL (4.0-11.0)
[2019-03-23 07:36] LABS: ALBUMIN 2.8 g/dL (3.4-5.0); POTASSIUM 4.5 mmol/L (3.5-5.1); TOTAL BILIRUBIN 0.3 mg/dL (<0.1-1.0); TOTAL PROTEIN 6.2 g/dL (6.4-8.2)
[2019-03-23 07:47] VITALS: BP 136/86
--- NOTE | 2019-03-23 14:19 | NUR ---
Assumed care of pt at 0700. Pt alert and oriented to self only. Impulsive at times. Diet upgraded to full liquid. Pt repeatedly asking for a sandwich. Explain to pt why she cannot have sandwich. Unable to understand. IVF infusing. Fall precautions in place. Will continue to monitor.
[2019-03-23 18:56] VITALS: BP 151/91
[2019-03-24 00:59] LABS: URINE BILIRUBIN NEGATIVE (Negative); URINE BLOOD NEGATIVE (Negative); URINE CLARITY CLEAR; URINE COLOR YELLOW; URINE GLUCOSE-RANDOM* NEGATIVE (Negative); URINE KETONES NEGATIVE (Negative); URINE LEUKOCYTES-REFLEX NEGATIVE (Negative); URINE NITRITE-REFLEX NEGATIVE (Negative); URINE PROTEIN (DIPSTICK) NEGATIVE (Negative); URINE UROBILINOGEN 0.2 E.U./dl (0.2-1.0)
[2019-03-24 03:22] VITALS: BP 142/78
--- NOTE | 2019-03-24 04:57 | NUR ---
PT AMBULATING TO BATHROOM WITH STANDBY ASSIST AND IS TOLERATING FAIR. DENIES PAIN. RESTING COMFORTABLY. NO NEEDS VOICED. CALL LIGHT WITHIN REACH. WILL CONTINUE TO PROVIDE FREQUENT OBSERVATION.
[2019-03-24 05:55] LABS: HEMOGLOBIN 9.8 gm/dL (12.0-15.0); MCH 30.9 pg (26.0-34.0); MCHC 33.9 g/dL (28.0-37.0); MCV 91.3 fL (80.0-100.0); RBC 3.17 mil/uL (4.20-5.00); RDW 13.5 % (10.5-14.5); WBC 3.3 thou/uL (4.0-11.0)
[2019-03-24 07:36] VITALS: BP 152/92
[2019-03-24 08:58] LABS: ALBUMIN 2.7 g/dL (3.4-5.0); CALCIUM 8.8 mg/dL (8.5-10.1); CREATININE 0.9 mg/dL (0.6-1.0); POTASSIUM 4.2 mmol/L (3.5-5.1); TOTAL BILIRUBIN 0.2 mg/dL (<0.1-1.0); TOTAL PROTEIN 5.7 g/dL (6.4-8.2)
--- NOTE | 2019-03-24 14:36 | NUR ---
Assumed care of pt at 0700. Pt remains confused and alert and oriented to self only. Impulsive at times. SBA to toilet. Fluids d/c'd. Denies pain. Colostomy in place. Diet advanced. Fall precautions in place. Will continue to monitor.
[2019-03-24 15:35] VITALS: BP 146/80
[2019-03-24 20:05] VITALS: BP 150/91
--- NOTE | 2019-03-25 03:05 | NUR ---
ASSUMED CARE OF PT @1900 PT ASSESSED AT START OF SHIFT ALERT TO SELF. AGITATED AND VERBALLY RUDE STATES SHE IS NOT IN A HOSPITAL, SHE FEELS FINE AND WANTS TO GO UPSTAIRS, YELLS OUT THAT SHE WANTS TO LEAVE AND DONT WANT TO BE HERE CONTINOUS REDIRECTION DONE DUE TO HX OF DEMENTIA. EVENING MEDS GIVEN TO HELP WITH AGITATION, PT LATER CALMED DOWN AND SLEPT THROUGH THE NIGHT. GETS UP TO THE BATHROOM WITH SBA. HIGH FALL PREC IN PLACE AND HOURLY MONITORING DONE. COLOSTOMY BAG AND IV STILL INTACT. WILL CONTINUE TO MONITOR TILL EOS
[2019-03-25 04:48] VITALS: BP 149/86
[2019-03-25 07:37] VITALS: BP 135/64
[2019-03-25] MEDS ORDERED: DEPAKOTE ER250 MG PO (12:03)
--- NOTE | 2019-03-25 12:35 | NUR ---
ASSUMED CARE AT 0700, SHIFT ASSESSMENT DONE, MEDS GIVEN. VSS. DENIES ANY PAIN, NAUSEA, VOMITING. COLOSTOMY IN PLACE, INTACT. DISCHARGE ORDER RECEIVED. PERIPHERAL IV WAS TAKEN OUT. WILL CONTINUE TO ASSESS AND ASSIST WITH ADLs NEEDED.
[2019-03-25 14:04] VITALS: BP 135/64
--- NOTE | 2019-03-25 15:33 | NUR ---
PT KNOWN TO CASE MANAGEMENTFROM PREVIOUS ADMISSIONS. PT LIVES AT HOME WITH HER SON AND DTR WHO WORKS NIGHTS. PT TO DC BACK HOME TODAY AND NURSING TO FOLLOW FROM [facility]. THERAPY WORKED WITH PT AND SHE DOES NOT NEED CONTINUED THERAPY SERVICES PER THEIR REC. SON WILL TRANSPORT PT HOME AND NURSING TO GO OVER INSTRUCTIONS WITH SON. PT IS PLEASANTLY CONFUSED.
[2019-03-25 15:37] VITALS: BP 135/64
--- NOTE | 2019-03-25 17:03 | NUR ---
FAXED DC ORDERS/SUMMARY TO [facility] SPOKE WITH LARY IN INTAKE AND SHE RECEIVED DC ORDERS AND WILL NOTIFY PT TIME OF VISITS THAT WILL START ON SUNDAY.
--- NOTE | 2019-03-27 13:21 | NUR ---
PT WAS DISCHARGED YESTERDAY 03/26 WITH [facility]. SPOKE WITH LARY AT [facility] SHE TRIED CALLING PT AND NUMBER WAS NOT IN SERVICE SO RN WENT BY PT'S HOUSE AND SPOKE WITH THE PT. PT WAS ADAMANT THAT SHE DID NOT NEED HH. SO SHE REFUSED CARE AND RN KALANI WILL NOT FOLLOW..
== END 2019-03-25 15:34 | disposition home health service (06) | DRG 388 ==
LOC: ER 22:48 → EROBS 03-22 01:13 → 4E 03-22 01:13 → ENTRNSPT 03-25 15:17 → EDTRNSPTSTS 03-25 15:33 → 4E 03-25 15:34
PROVIDERS: Emergency Medicine; Nurse Practitioner Family; ADMIT Hospitalist
PROC: 0D9670Z Drainage of Stomach with Drainage Device, Via Natural or Artificial Opening (ICD-10-PCS; principal; 2019-03-24)
DX: K56.609 Unspecified intestinal obstruction, unspecified as to partial versus complete obstruction (principal); E43 Unspecified severe protein-calorie malnutrition; E87.1 Hypo-osmolality and hyponatremia; F03.91 Unspecified dementia, unspecified severity, with behavioral disturbance; E78.5 Hyperlipidemia, unspecified; E03.9 Hypothyroidism, unspecified; D64.9 Anemia, unspecified; D72.819 Decreased white blood cell count, unspecified; K59.00 Constipation, unspecified; Z96.642 Presence of left artificial hip joint; Z90.710 Acquired absence of both cervix and uterus; Z85.038 Personal history of other malignant neoplasm of large intestine; Z68.26 Body mass index [BMI] 26.0-26.9, adult; Z93.3 Colostomy status; Z87.81 Personal history of (healed) traumatic fracture; Z79.899 Other long term (current) drug therapy; Z88.2 Allergy status to sulfonamides; Z88.1 Allergy status to other antibiotic agents; Z88.8 Allergy status to other drugs, medicaments and biological substances
CPT/HCPCS: 10084

== ENCOUNTER 2019-05-23 18:06 | Emergency (ER) | payer OTHER ==
[~2019-05-23] VITALS: Ht 157.5 cm; Wt 59.0 kg
[~2019-05-23 18:06] MED LIST changes: +DEPAKOTE ER250 MG PO; +LIPITOR40 MG PO; +NORVASC2.5 MG PO; +PLAVIX 75 MG TA75 M1 PO; +SYNTHROID100 MC1 PO; -SYNTHROID100 MCG PO
[2019-05-23 20:30] VITALS: BP 148/82
== END 2019-05-23 20:31 | disposition home or self-care (01) ==
LOC: ER 18:06
DX: R04.0 Epistaxis (principal); E78.5 Hyperlipidemia, unspecified; E03.9 Hypothyroidism, unspecified; F03.90 Unspecified dementia, unspecified severity, without behavioral disturbance, psychotic disturbance, mood disturbance, and anxiety; Z86.2 Personal history of diseases of the blood and blood-forming organs and certain disorders involving the immune mechanism; Z85.038 Personal history of other malignant neoplasm of large intestine; Z98.890 Other specified postprocedural states; Z88.6 Allergy status to analgesic agent; Z88.2 Allergy status to sulfonamides; Z88.1 Allergy status to other antibiotic agents

== ENCOUNTER 2019-08-20 04:31 | Inpatient (IN) | payer OTHER ==
[~2019-08-20] VITALS: Ht 157.5 cm; Wt 67.8 kg
[2019-08-20 04:41] VITALS: BP 145/80
[2019-08-20] MEDS ORDERED: MIRALAX119 GM PO (04:57)
[2019-08-20 05:45] LABS: ABSOLUTE NEUTROPHILS 4.8 thou/uL (1.4-8.2); EOSINOPHILS 1.8 % (0.0-3.0); HEMATOCRIT 32.9 % (37.0-47.0); HEMOGLOBIN 10.7 gm/dL (12.0-15.0); LYMPHOCYTES 7.2 % (24.0-44.0); MCHC 32.6 g/dL (28.0-37.0); MCV 92.1 fL (80.0-100.0); MONOCYTES 11.4 % (1.0-8.0); PLATELET COUNT 230 thou/uL (150-400); POLYS 78.6 % (36.0-66.0); RBC 3.58 mil/uL (4.20-5.00); RDW 13.6 % (10.5-14.5); WBC 6.5 thou/uL (4.0-11.0)
[2019-08-20 05:46] LABS: ANION GAP 12 mmol/L (7-16); BUN 26 mg/dL (7-18); CALCIUM 8.6 mg/dL (8.5-10.1); CHLORIDE 103 mmol/L (98-107); CO2 23 mmol/L (21-32); GLUCOSE 98 mg/dL (74-106); POTASSIUM 3.7 mmol/L (3.5-5.1); SODIUM 138 mmol/L (136-145)
--- NOTE | 2019-08-20 05:49 | NUR ---
AFTER A DISCUSSION WITH THE PTS SON, IT HAS BEEN DETERMINED THAT ALL OF THE PT'S IDENTIFYING INFORMATION WILL BE PICKED UP BY THE SON. HE STATED HE WILL BE COMING BY TAXI AND WILL TAKE THE ITEMS. 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
[2019-08-20 05:58] LABS: ALBUMIN 3.1 g/dL (3.4-5.0); MAGNESIUM 1.8 mg/dL (1.8-2.4); SGOT 30 U/L (15-37); SGPT 30 U/L (30-65); TOTAL BILIRUBIN 0.3 mg/dL (<0.1-1.0); TOTAL PROTEIN 6.9 g/dL (6.4-8.2); TROPONIN-I <0.06 ng/mL (<0.06)
[2019-08-20 06:52] LABS: URINE BILIRUBIN NEGATIVE (Negative); URINE BLOOD TRACE (Negative); URINE COLOR YELLOW; URINE GLUCOSE-RANDOM* NEGATIVE (Negative); URINE KETONES NEGATIVE (Negative); URINE LEUKOCYTES-REFLEX TRACE (Negative); URINE NITRITE-REFLEX NEGATIVE (Negative); URINE PROTEIN (DIPSTICK) 1+ (Negative); URINE SPECIFIC GRAVITY 1.025 (1.005-1.035); URINE UROBILINOGEN 0.2 E.U./dl (0.2-1.0)
[2019-08-20 06:54] LABS: URINE CLARITY SL HAZY
[2019-08-20 07:05] LABS: CASTS None Seen /LPF (None Seen); MUCUS >6 Heavy strn/LPF (None Seen); SQUAMOUS 0-3 Few /LPF (0-3)
[2019-08-20 07:06] LABS: BACTERIA-REFLEX 1-9 Few /HPF (None Seen); CRYSTALS None Seen /LPF (None Seen); URINE RBC 0-2 Rare /HPF (0-2)
[2019-08-20 07:22] LABS: AMP/METHAMP Negative (Negative); BARBITURATES Negative (Negative); BENZODIAZEPINES Negative (Negative); COCAINE Negative (Negative); METHADONE Negative (Negative); OPIATES Negative (Negative); PCP Negative (Negative)
[2019-08-20 08:31] VITALS: BP 112/77
[2019-08-20 08:38] VITALS: BP 112/77
[2019-08-20 08:52] LABS: TSH 0.032 uIU/mL (0.358-3.740)
[2019-08-20 08:55] VITALS: BP 114/64
--- NOTE | 2019-08-20 11:28 | NUR ---
PT ADMITTED FROM THE ER AT 1000. ADMISSION COMPLETE. PT IN BED WITH SCD'S IN PLACE. PT RECEIVING FLUIDS. PT DOES NOT LIKE THE SCD'S BUT WILL TOLERATE THEM. VITALS STABLE. COFFEE GIVEN TO PT. IV PATENT, WITH NO REDNESS OR SWELLING. PT UP TO THE BED SIDE COMMODE WITH ONE ASSIST AND A LITTLE UNSTABLE. CALL LIGHT IN PALACE. BED IN LOW POSITION, LOCKED WITH BED ALARM IN PLACE. FALL PROTOCOL IN PLACE.
--- NOTE | 2019-08-20 13:51 | NUR ---
CONSULT [id number] COMPLETED BY THIS FAMILY PRACTICE PHYSICIAN ASSISTANT.
--- NOTE | 2019-08-20 16:34 | NUR ---
INITIAL ASSESSMENT: Pt evaluated for d/c planning needs. Reviewed chart and spoke with nurse, pt and pt's son Pedro. Pt is well known to CM from previous hospitalization. Pt had been living in a rental house (lease is up this month) with her son and daughter. Daughter apparently has moved out of the house and son is not working. Pt has history of dementia and son is no longer able to care for pt at home. Son said pt becomes worse at night and behaviors are no longer manageable at home. Son said pt has been at [facility] in the past. He also said that pt was at [facility] overnight, but he and his sister did not like facility and so took her out and back home. Pt has had [facility] in the past. Son said he has Medicaid application, but has not completed it. Son states he is overwhelmed with pt's care and plans to place her in fci. Pt currently has [employer]. Pt's son said he saw advertisement on television for insurance plan and decided to sign her up. Pt's son thought he was signing pt up for supplemental insurance. Went on [employer] Website and brought up skilled facilities in network with insurance in [address] [facility]. Son would like referrals sent to [facility] and [facility]. Will ask network planner to fax referrals on . Will remain available to assist as needed.
[2019-08-20 19:14] VITALS: BP 143/89
--- NOTE | 2019-08-21 03:25 | NUR ---
ASSESSED AT START OF SHIFT PT A&OX2 WITH SOME CONFUSION. PT UP WITH ASSISTX1 TO BSC. IV INTACT AND FLUIDS INFUSING. PT MORE CALM THIS SHIFT. SEROQUEL GIVENX1 THIS SHIFT. SANDWICH GIVEN AND PT SUMI IT WELL. REPORT GIVEN TO ADARSH ERIC TO [facility].
[2019-08-21 04:45] VITALS: BP 143/77
--- NOTE | 2019-08-21 07:10 | NUR ---
RECEIVED IN BED SLEEPING AROUND 2245. AXOX3. NO S/S ACUTE DISTRESS NOTED OR REPORTED AT THIS TIME. CARE TRANSFERRED TO INCOMING RN AT THIS TIME.
[2019-08-21 08:00] VITALS: BP 153/85
--- NOTE | 2019-08-21 14:28 | NUR ---
FAXED REFERRAL TO [facility] SPOKE WITH CORNEL IN ADM SHE RECEIVED REFERRAL AND WILL NOT BE ABLE TO ACCEPT FOR SKILLED STAY SO THEIR OIL SPRAYING MACHINE OPERATOR WILL REACH OUT TO FAMILY ABOUT PRIVATE PAY. FAXED REFERRAL TO [facility] SPOKE WITH AWAIS IN ADM THEY CANNOT ACCEPT DUE TO INSURANCE. DP TO FOLLOW.
--- NOTE | 2019-08-21 15:31 | NUR ---
ASSUMED CARE OF THE PT AT 0700. PT IS A FALL RISK AND FALL PRECAUTIONS ARE IN PLACE. PT IS CONFUSED AND FORGETS LIMITATIONS ON GETTING OUT OF BED, BED ALARM IS ON. CALL LIGHT IS WITHIN REACH. PT USES BEDSIDE COMMODE. PT REFUSED SCD'S. WILL CONTINUE TO MONITOR THE PT.
[2019-08-21 16:11] VITALS: BP 156/104
--- NOTE | 2019-08-21 16:26 | NUR ---
Following for d/c planning needs. Spoke with son at length this afternoon. Pt and family have been evicted from their house. F[facility]ed referral to [facility] [place] [place] [place]. Will await return call re: bed availability and acceptance.
--- NOTE | 2019-08-21 17:14 | EKG ---
[place] [address] [email or web address] [email or web address] [address] ELECTROCARDIOGRAM REPORT Name: SINTIA BESSHIRAL Zuniga Room #: 445-P ADM IN M.R.#: [id number] Admission: 08/20/19 Attend Phys: Kylah Adames Discharge: Date of : 44 Report #: [id number] THIS REPORT FOR: //name// [facility] ED Test Date: 2019-08-20 Test Time: 04:56:21 Pat Name: JESSE BESS Department: Room: [facility] Gender: F Material Man: irma : 1940 Requested By: John Brenner Order Number: [id number] MD: Fortunato Arguello Measurements Intervals [place] Rate: 77 P: -6 NM: 212 QRS: -62 QRSD: 119 T: 92 QT: 394 QTc: 446 Interpretive Statements Sinus rhythm Borderline prolonged NM interval Probable left atrial enlargement LVH with IVCD, LAD and secondary repol abnrm Inferior infarct, old Compared to ECG 11/08/2018 13:52:10 Intraventricular conduction delay now present Left-axis deviation no longer present Myocardial infarct finding still present Electronically Signed On 08-21-2019 17:13:37 COTTON STRIPPER by Fortunato Arguello [email or web address] <ELECTRONICALLY SIGNED> By: Fortunato Arguello MD 08/21/19 1713 0456 [id number] Fortunato Arguello MD /EPI
[2019-08-21 19:19] VITALS: BP 143/88
[2019-08-22 03:10] VITALS: BP 132/74
--- NOTE | 2019-08-22 05:51 | NUR ---
PATIENT ALERT AND ORIENTED X PERSON AND PLACE. DOES NOT KNOW WHAT TIME OF YEAR OR WHY SHE IS IN THE HOSPITAL. IV PATENT IN LFA WITH FLUIDS INFUSING. UP TO BSC SEVERAL TIMES DURING NIGHT. PATIENT DID SLEEP IN BETWEEN TIMES. DENIES PAIN.
[2019-08-22 08:40] VITALS: BP 133/91
--- NOTE | 2019-08-22 12:16 | NUR ---
ASSUMED CARE OF THE PT AT 0700. PT IS VERY CONFUSED AND HOSTILE, CONTINUES TO GET OUT OF BED AND CURSE AT STAFF, CONTINUED TO REORIENT PT WHY SHE NEEDS TO CALL FOR HELP WHEN NEEDING TO USE THE RESTROOM. L FOREARM IV IS DRY AND INTACT. COLOSTOMY IS DRY AND INTACT. FALL PRECAUTIONS ARE IN PLACE, BED IN LOWEST POSITION AND CALL LIGHT IS WITHIN REACH. WILL CONTINUE TO MONITOR THE PT.
--- NOTE | 2019-08-22 17:16 | NUR ---
ASKED DC CLOTH DYER THIS AM TO FOLLOW-UP WITH THE FACILITIES TO SEE IF ANYONE COULD ACCEPT PT. FOLLOWING.
[2019-08-22 19:35] VITALS: BP 113/72
--- NOTE | 2019-08-23 03:05 | NUR ---
PATIENT ALERT AND ORIENTED TO PERSON AND PLACE. UP TO BATHROOM WITH ASSIST OF ONE. DENIES PAIN. SLEPT OFF AND ON DURING NIGHT.
--- NOTE | 2019-08-23 09:43 | NUR ---
OLGA left voice message for pt's son, Pedro ([phone]) to notify of pt's acceptance to [facility]. OLGA contacted [facility]--admissions dept not available over the weekend and unable to leave voice message, as voice mailbox is not set up. OLGA left message with Calry to provide to the admissions dept at [facility] to follow up with TUSHAR/OLGA on Sunday. OLGA left voice message for Amina at [facility]. No weekend discharge planned. OLGA/TUSHAR is following to assist as needed with discharge planning.
--- NOTE | 2019-08-23 09:50 | NUR ---
PT CARE ASSUMED AT 0700. PT IS VERY SEDATED THIS AM AND WAS VERY HARD TO ARROUSE. I WAS ABLE TO GET THE PT UP IN THE RECLINER WITH ANOTHER NURSE SO SHE WOULD FEEL COMFORTABLE MOVING. SHE TRANSFERRED EASILY WITH THE GAITBELT AND WALKER. ICE PACK ON SURGERY SITE. HEMOVAC IN PLACE WITH POSSIBLE DC TODAY AFTER PT. CURTIS DRESSING INTACT WITH NO DRAINAGE. [facility] AND [facility] IN PLACE. PT DID NEED A FULL BED CHANGE TO TO SWEATING SO MUCH OVER NIGHT. IV PATENT WITH NO REDNESS OR SWELLING. IV FLUIDS INFUSING. DIASTOLIC PRESSURE ELEVATED TO 91 THIS AM WHICH IS IN A NORMAL RANGE FOR THE PT. MORNING MEDICATIONS ADMINISTERED. PT IS NOT COMPLAINING OF ANY PAIN AT THE MOMENT. WILL CONTINUE TO MONITOR. CHAIR ALARM IN PLACE. CALL LIGHT WITHIN REACH.
--- NOTE | 2019-08-23 11:35 | NUR ---
PT CARE ASSUMED AT 0700. A&OX2. PT UP IN RECLINER. PT IS IMPULSIVE TO GET UP TO THE BATHROOM AND TO GO GET COFFEE. PT WILL CALL OUT "HELLO" AND CANNOT REMEMBER TO PUSH THE CALL LIGHT BUTTON FOR ASSISTANCE. PT IS PLEASANT LONG YOU CONTINUE TO BRING HER COFFEE. PT HAS NO IV ACCESS AND HAS HAD HER ANTIBIOTICS SWITCHED TO PO. PT MOVES ARROUND IN HER ROOM WITH STAND BY ASSISTANCE. FALL PRECAUTIONS IN PLACE. CHAIR LOCKED. LEGS ELEVATED. SCD'S IN PLACE. PT HAS TAKEN ALL OF HER MEDICATIONS.
[2019-08-23 17:15] VITALS: BP 151/90
[2019-08-23 20:05] VITALS: BP 116/63
--- NOTE | 2019-08-24 02:02 | NUR ---
PT AMBULATING TO BATHROOM WITH STANDBY ASSIST AND IS TOLERATING FAIR. DENIES PAIN. RESTING COMFORTABLY. NO NEEDS VOICED. CALL LIGHT WITHIN REACH. WILL CONTINUE TO PROVIDE FREQUENT OBSERVATION.
[2019-08-24 08:16] VITALS: BP 138/84
--- NOTE | 2019-08-24 12:57 | NUR ---
ASSUMED CARE OF THE PT AT 0700. PT CONTINUES TO GET OUT OF BED, WITH ALARM ON TO GO TO THE BATHROOM. PT HAS NO IV. PT IS EASILY DISTRACTED BY THE TELEVISION. PT IS AWAKE AND ORIENTED TO PLACE. FALL PRECAUTIONS IN PLACE, BED IN LOWEST POSITION AND CALL LIGHT IS IWTHIN REACH. WILL CONTINUE TO MONITOR THE PT.
[2019-08-24 17:34] VITALS: BP 104/57
[2019-08-24 19:10] VITALS: BP 118/91
--- NOTE | 2019-08-25 01:01 | NUR ---
PT AMBULATING TO BATHROOM WITH STANDBY ASSIST AND IS TOLERATING FAIR. DENIES PAIN. RESTING COMFORTABLY. NO NEEDS VOICED. CALL LIGHT WITHIN REACH. FREQUENT OBSERVATION.
[2019-08-25 04:20] VITALS: BP 128/74
--- NOTE | 2019-08-25 04:53 | NUR ---
CONT CARE OF PT. PT SLEEPING ON ARRIVAL GETS UP WITHOUT CALLING TO USE THE BATHROOM. FALL PREC IN PLACE AND ROOM INFRONT OF NURSING STATION WILL CONT TO MONITOR TILL EOS.
[2019-08-25 07:25] VITALS: BP 122/73
[2019-08-25] MEDS ORDERED: CEFUROXIME250 MG PO (10:36)
--- NOTE | 2019-08-25 10:37 | NUR ---
PT ALERT, VSS, DENIES PAIN. PATIENT TOLERATING DIET. PATIENT FORGETFUL BUT NOT IMPULSIVE AT THIS TIME. NO SIGNS OF DISTRESS. PLAN IS REHAB. NO IV ACCESS, DOCTOR AWARE. WILL CONTINUE TO MONITOR.
--- NOTE | 2019-08-25 13:06 | NUR ---
Following for d/c planning needs. Called pt's son Pedro and spoke at length with him re: choices of facilities in network with insurance. Explained multiple times to son that there are limited number of facilities in network with the insurance. Son had said he does not want pt to go to [facility]. Pt has been at [facility] in the past, but they are not in network with insurance. Referrals had been sent to [facility], [facility], [facility] and [facility]. Both [facility] and [facility] have accepted pt. Pt's son said he wants more choices. Explained multiple times to son that pt is medically ready for d/c. He said he wants to speak with other family members and then decide where he wants pt to go. media planner to contact [facility] and [facility] re: admission decision.
--- NOTE | 2019-08-25 14:20 | NUR ---
F/U WITH [facility] SPOKE WITH BETO IN ADM SHE REVIEWED REFERRAL AND DOES NOT HAVE A LTC BED AVAILABLE. LEFT MSG WITH DIANE IN ADM AT [facility] TO SEE IF THEY CAN ACCEPT PT. DP TO FOLLOW.
--- NOTE | 2019-08-25 16:32 | NUR ---
FAXED REFERRAL TO [facility] SPOKE WITH ROHAN [facility]ICO SHE IS COVERING FOR [facility] SHE WILL SUBMIT FOR AUTH. LUCIANO TO FOLLOW.
[2019-08-25 17:31] VITALS: BP 128/78
--- NOTE | 2019-08-25 19:46 | NUR ---
PT VERY IMPULSIVE...HOLLERS OUT AND JUMPS OUT OF BED WITHOUT CALLING FOR ASSIST...FORGETS WHEN SHE JUST HAD A SNACK OR COFFEE AND ASKS FOR ANOTHER ONE WITH NO MEMORY OF PREVIOUS SNACK..
[2019-08-25 20:12] VITALS: BP 132/67
--- NOTE | 2019-08-26 05:24 | NUR ---
Assumed pt care at 1900. Pt is A/OX3,forgetful yells out for help and gets impulsive at times. Call light/personal items within reach and pt educated supervisor dimension warehouse light use but won't call for help. Denies pain on assessment. VSS.Up with AX1 w/GB. Pt will occasionally refuse GB to be placed,pt has unsteady gait;and will curse at the staff about it but then again apologize and thank staff for helping her to the bathroom. Colostomy intact, burped a few times;pt only had a small formed BM fluids encouraged but pt hesitant to-likes coffee more. Fall precautions in place,frequent checks on pt. Will continue to monitor pt.
[2019-08-26 07:37] VITALS: BP 120/71
[2019-08-26 08:22] VITALS: BP 120/71
--- NOTE | 2019-08-26 12:08 | NUR ---
OLGA reviewed chart and spoke with nursing and attending physician. Pt was [facility] to [facility] and is progressing towards goals for discharge. [facility] has accepted pt and submitted for insurance authorization. OLGA updated [facility] post-acute liaison. Updated clinical/therapy notes to be faxed to [facility] when available. OLGA is following to assist as needed with discharge planning.
--- NOTE | 2019-08-26 12:31 | NUR ---
11:[address] Adames I went to assess Malinda to see if she would meet criteria for [facility]. I spoke with Malinda. She told me the president was "Gerald Giovani." She admitted to yelling at staff "Because they deserve it." She stated that she has had nothing to eat all day. According to her nurse she did eat breakfast. The pateint stated she ate a bologna sandwich. The patient is confused. She is obsessed with her colostomy. She stated that she only uses her colostomy while in the hospital, otherwise she will use the toliet. She is alert to self only. I consulted Dr. Shahid and Dr. Pope. Malinda would meet criteria for inpatient psych. The nurse informed me, Malinda is discharging today. I left a message with her DPOA. At this time he has not returned my call. Dr. Shahid and Dr. Pope indicated that they are in agreement with the discharge planning set in place.
--- NOTE | 2019-08-26 14:27 | NUR ---
DISCHARGE PLANNING. PATIENT DISCHARGING TO [facility] ONCE MEDICALLY READY. CLINICAL INFORMATION FAXED TO [facility] ADMISSIONS. CALL PLACED TO [facility] TO NOTIFY.
--- NOTE | 2019-08-26 18:26 | NUR ---
ASSUMED CARE OF PATIENT AT 0715, PATIENT ALERT WITH CONFUSION, IMPULSIVE. PATIENT DENIES PAIN THIS SHIFT. PATIENT IS A FALL RISK, FALL PRECAUTIONS IN PLACE, PATIENT INSTRUCTED TO CALL FOR ASSISTANCE. VSS, PO MES, ASSESSMENT COMPLETED. COLOSTOMY TO LEFT SIDE OF ABDOMEN. PATIENT HAS BEEN UP AND DOWN ALL DAY, HAS BEEN HOLLERING OUT ALL DAY AND CUSSING AT STAFF. SON REQUESTED SOFT DIET, THIS RN NOTIFIED DR OLEA OF DIET CHANGE, NEW ORDER RECEIVED. TUSHAR/CEDRICK STATED INSURANCE AUTH WENT THRU, PATIENT WILL BE DISCHARGED TO [facility]. PATIENT LEFT VIA W/C VAN, REPORT CALLED TO LULU/GWENDOLYN AT THE FACILITY. ALL DISCHARGE PAPERWORK AND ALL PERSONAL BELONGINGS SENT WITH THE PATIENT.
== END 2019-08-26 17:13 | DRG 689 ==
LOC: ER 04:31 → 4S 07:47 → EROBS 07:47 → 4S 08:39 → 4N 08-25 17:09
PROVIDERS: Emergency Medicine; ADMIT Hospitalist
DX: N39.0 Urinary tract infection, site not specified (principal); G92 Toxic encephalopathy; F03.91 Unspecified dementia, unspecified severity, with behavioral disturbance; E78.5 Hyperlipidemia, unspecified; I10 Essential (primary) hypertension; E53.8 Deficiency of other specified B group vitamins; G47.00 Insomnia, unspecified; R79.89 Other specified abnormal findings of blood chemistry; E03.9 Hypothyroidism, unspecified; Z79.899 Other long term (current) drug therapy; Z88.6 Allergy status to analgesic agent; Z88.1 Allergy status to other antibiotic agents; Z93.3 Colostomy status; Z88.5 Allergy status to narcotic agent; Z88.2 Allergy status to sulfonamides; Z85.038 Personal history of other malignant neoplasm of large intestine; Z90.710 Acquired absence of both cervix and uterus; D64.9 Anemia, unspecified; Z96.642 Presence of left artificial hip joint
CPT/HCPCS: 10102; 10790